=== PATIENT | male | born 1990 | race Caucasian/White ===

== ENCOUNTER 2019-09-11 18:38 | Emergency (ER) | payer SELFPAY ==
[~2019-09-11] VITALS: Ht 182.8 cm; Wt 104.3 kg
[~2019-09-11 18:38] MED LIST: AGM875T PO; ALEVE; AMOX-355 PO; AMOX500C2 PO; CEFP500T4 PO; DIPH50CA; DOXY100C2 PO; HYDR-34 PO; HYDR-757 PO; IBUPROFEN; METH4TAB PO; NAPR-243 PO; NAPR250T34 PO; ONDAN4ODT PO; PRD20T PO; PRD50T PO; PRX10T PO; TRIA16.5 NS; TRM50T PO
--- OUTSIDE RECORDS SUMMARY | 2019-09-11 18:49 | XMS REPORT | Referral Summary ---
Author Author [facility] Organization [facility] Address Unknown Phone Unavailable Care Team Providers Care Paleologist Name Role Phone No PCP, Pt States PCP Encounter [facility] [phone] Date(s): 03/31/17 - 03/31/17 [facility] [address] [place] [address] [facility] Discharge Diagnosis: Frontal sinusitis Discharge Disposition: 01-Home or Self Care Attending Physician: Provider, Immediate Care Attending Physician: Olegario Harrison APRN Admitting Physician: Provider, Immediate Care Vital Signs Most recent to 1 oldest [Reference Range]: Temperature Oral 36.4 degC [35.8-37.3 degC] (03/31/17 2:03 PM) Peripheral Pulse 81 bpm Rate [60-100 bpm] (03/31/17 2:03 PM) Blood Pressure 134/98 mmHg [90-140/60-90 mmHg] (03/31/17 2:03 PM) SpO2 98 % (03/31/17 2:03 PM) Problem List No Known Problems Allergies, Adverse Reactions, Alerts No Known Medication Allergies Medications Augmentin 500 mg-125 mg oral tablet 1 tabs, Oral, q8hr, X 7 days, # 21 tabs, 0 Refill(s), Pharmacy: [facility] [id number] Start Date: 03/31/17 Stop Date: 04/07/17 Status: Ordered Carafate 1 g oral tablet 1 g 1 tabs, Oral, BID, # 60 tabs, 0 Refill(s) Start Date: 06/20/16 Status: Ordered Zofran 4 mg oral tablet 4 mg 1 tabs, Oral, q4hr, Nausea or Vomiting | as needed for nausea/vomiting, # 1 0 tabs, 0 Refill(s) Start Date: 06/20/16 Status: Ordered Results No data available for this section Immunizations No data available for this section Procedures No data available for this section Social History Social History Type Response Smoking Status Never smoker entered on: 06/20/16 Assessment and Plan Extracted from: Title: Office Visit Note Author: Olegario Harrison APRN ate: 03/31/17 1.Frontal sinusitis Instructed patient on medication, use, common side effects, and administration. Discussed proper OTC medication, including [Tylenol, ibuprofen,antihistamine], for symptomatic relief. Discussed use of OTC saline nasal rinses, decongestants, salt water gargles,and cool mist humidifier for symptomatic relief. Encouraged patient to increase fluid intake to facilitate the thinningand drainingmucosal secretions. Instructed patient if symptoms worsen or new symptoms arise to seek medical attention here or at the ER. Instructed patient if symptoms do not improve follow up with PCP in 2-3 days. Patient voiced understanding and agreed with treatment plan. Patient dismissed in stable condition. Ordered: amoxicillin-clavulanate, 1 tabs, Oral, q8hr, X 7 days, # 21 tabs, 0 Refill(s), Pharmacy: [facility] [id number] Office Visit Level 3 Est [address]"
--- OUTSIDE RECORDS SUMMARY | 2019-09-11 18:49 | XMS REPORT ---
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 CrCl (CG) > 60 (no code) Arden Eolia (92702) IMMATURE 0.07 (N) Arden Eolia GRANULOCYTE # (08646) LIPASE 90 (N) Arden Eolia (17252) LYMPHOCYTE # 1.3 (N) Arden Eolia (05864) MONOCYTE # 0.7 (N) Arden Eolia (46292) NRBC % 0.0 (N) Arden Eolia (74657) RED BLOOD CELL 5.22 (N) Arden Eolia (17245) UA BILIRUBIN Negative (no code) Arden Eolia DIPSTICK (38622) UA BLOOD Negative (no code) Arden Eolia DIPSTICK (96350) UA GLUCOSE Negative (no code) Arden Eolia DIPSTICK (26166) UA KETONE Negative (no code) Arden Eolia DIPSTICK (49620) UA LEUKOCYTE Negative (no code) Arden Eolia ESTERASE (76192) DIPSTICK UA NITRITE Negative (no code) Arden Eolia DIPSTICK (84530) UA PROTEIN Negative (no code) Arden Eolia DIPSTICK (49534) UA SPECIFIC 1.010 (L) Arden Eolia GRAVITY (57482) UA UROBILINOGEN NORMAL (no code) Arden Woodlaw n DIPSTICK (75129) UR PH 6.0 (N) Arden Eolia (28305) WHITE BLOOD CELL 13.0 (H) Arden Florenciola wn (65845) laboratory on 2019-04-21 Albumin 4.4 g/dL (N) 3.4 - 5.4 g/dL Arden Levino dlawn [Mass/Vol] (57927) ALP [Catalytic 61 U/L (N) 44 - 147 U/L Arden Wo odlawn activity/Vol] (40968) Anion gap 12 mmol/L (N) 3 - 11 mmol/L Arden Wood lawn [Moles/Vol] (16590) Basophils/100 0.2 % (N) 0.5 - 1 % Arden Woodl awn WBC (Bld) (54966) Calcium 9.3 mg/dL (N) 8.5 - 10.2 mg/dL Arden W oodlawn [Mass/Vol] (66661) Chloride 101 mmol/L (N) 95 - 106 mmol/L Arden Wo odlawn [Moles/Vol] (78104) CO2 [Moles/Vol] 27 mmol/L (N) 23 - 29 mmol/L Arden Eolia (47707) Creatinine 1.23 mg/dL (N) Arden Eolia [Mass/Vol] (77523) Eosinophils/100 0.2 % (L) 1 - 4 % Arden Pritchard dlawn WBC (Bld) (47904) Erythrocyte 13.0 % (N) 11.6 - 14.6 % Arden Wood lawn distribution (34546) width (RBC) [Ratio] GFR/1.73 sq M mL/min/{1.73_m2} (no code) 90 - 120 Arden Eolia predicted among mL/min/{1.73_m2} (11067) non-blacks MDRD (S/P/Bld) [Vol rate/Area] Glucose 135 mg/dL (H) 60 - 125 mg/dL Arden Pritchard dlawn [Mass/Vol] (25515) Granulocytes 11.0 (H) Arden Eolia (Bld) [#/Vol] (18569) Granulocytes/100 84.3 % (H) Arden Woodla wn WBC (Bld) (16537) Hematocrit (Bld) 46.3 % (N) 36.1 - 50.3 % Arden Eolia [Volume (89944) fraction] Hemoglobin (Bld) 16.1 g/dL (N) 12.1 - 17.2 g/dL Jose raji Eolia [Mass/Vol] (82355) Immature 0.5 % (N) 0 - 0.5 % Arden Woodlaw n granulocytes/100 (36059) WBC (Bld) Lactate 1.7 mmol/L (N) 0.5 - 2.2 mmol/L Arden W oodlawn [Moles/Vol] (85017) Lymphocytes/100 9.7 % (L) 20 - 40 % Arden Pritchard dlawn WBC (Bld) (28767) MCH (RBC) 30.8 pg (N) 27 - 31 pg Arden Newton n [Entitic mass] (22150) MCHC (RBC) 34.8 g/dL (N) 32 - 36 g/dL Ardenraji Matiasl awn [Mass/Vol] (93288) MCV (RBC) 88.7 fL (N) 80 - 100 fL Ardenraji Matiasla wn [Entitic vol] (94095) Monocytes/100 5.1 % (N) 2 - 8 % Ardenraji Matiasl awn WBC (Bld) (30365) Platelet mean 9.1 fL (N) 7.2 - 11.7 fL Arden Levin odlawn volume (Bld) (15218) [Entitic vol] Platelets (Bld) 212 (N) Arden Newton n [#/Vol] (06664) Potassium 3.7 mmol/L (N) 3.7 - 5.2 mmol/L Arden W oodlawn [Moles/Vol] (72559) Protein 8.3 g/dL (H) 6.4 - 8.3 g/dL Arden Pritchard dlawn [Mass/Vol] (83494) Sodium 140 mmol/L (N) 135 - 145 mmol/L Arden W oodlawn [Moles/Vol] (31195) Urea nitrogen 21 mg/dL (H) 7 - 20 mg/dL Arden Pritchard dlawn [Mass/Vol] (25711) not yet categorized on 2019-03-08 - CT ABD/PELVIS ~ ~ PATIENT (no code) Arden mahoney WITH CONTRAST NAME: ([id number]) RAYNA NGUYEN Sanjay ~ UNIT NO: [id number] ~ ~ EXAMS: CPT CODE: ~ [id number] CT ABD/PELVIS WITH CONTRAST 29462 ~ ~ ~ REASON FOR EXAM: 28 years old Male right lower quadrant abdominal ~ pain ~ ~ TIME OF EXAM: 03/08/2019 3:31 PM ~ ~ COMPARISON: None ~ ~ TECHNIQUE: Routine helical contrast-enhance d CT images were obtained ~ through the abdomen and pelvis. Postprocessed coronal and sagittal ~ reformats were reviewed. ~ ~ FINDINGS: ~ Included Lung Bases: There is no consolidation or acute abnormality. ~ ~ CT Abdomen: The liver, spleen, adrenal glands, and pancreas all have a ~ normal appearance. Gallbladder phrygian cap is noted. ~ ~ Bilateral kidneys show multiple subcentimeter hypodense foci, too ~ small to characterize, likely represents simple cyst. ~ ~ There is no mesenteric or retroperitoneal adenopathy. The appendix has ~ a normal appearance (image 58 series 6). The bowel loops are ~ nondilated. Multiple fluid-filled small bowel and large bowel loops is ~ seen. ~ ~ There is no free fluid or free air. ~ ~ CT Pelvis: Ureters and bladder are within normal limits. ~ ~ There is no free air, free fluid, loculated collection, or adenopathy ~ in the pelvis. ~ ~ Linear sclerotic focus is seen in the proximal lateral right femur, ~ measuring approximately 2.3 cm in length (image 84 series 4), likely ~ benign in nature. Grade 1 retrolisthesis of L5 over S1. No aggressive ~ bone lesion is seen. ~ ~ The soft tissue structures are age appropriate. ~ ~ IMPRESSION: ~ 1. Multiple fluid-filled small and large bowel loops are seen. This is ~ ~ ~ [facility] ER NAME: RAYNA NGUYEN ~ [address] HP: [phone] AGE: 28 S:M~ [place] [address] : 1990 LOC: E.ED ~ PHYS: Aiden Miller MD ~ PHONE #: [phone] EXAM DATE: 03/08/2019 STATUS: REG ER~ FAX #: [phone] A#: [id number] U#: [id number]~ ~ PAGE 1 Signed Report (CONTINUED) ~ ~ ~ ~ ~ PATIENT NAME: RAYNA NGUYEN ~ UNIT NO: [id number] ~ ~ EXAMS: CPT CODE: ~ [id number] CT ABD/PELVIS WITH CONTRAST 01997 ~ <Continued>~ ~ ~ nonspecific in appearance, can be seen with enterocolitis. Recommend ~ clinical correlation. ~ ~ 2. Normal appendix. No bowel obstruction, free fluid, or free air. ~ ~ 3. Too small to characterize hypodense foci in bilateral kidneys, ~ likely represents simple cysts. ~ ~ ~ I have personally reviewed these images and corrected the resident ~ physician's interpretation if necessary. ~ ~ ~ at 1600 ~ RESIDENT: IMELDA KNOWLES MD ~ Reported and signed by: WILLAM SAMUEL MD ~ ~ ~ ~ ~ ~ ~ ~ ~ ~ ~ ~ ~ ~ ~ ~ ~ ~ ~ ~ CC: ~ ~ TECHNOLOGIST: LESTER CARRERO; ADRIANO RAMIREZ ~ TRANSCRIBED DATE/Time: 03/08/2019 1600 BY: [email or web address] ~ EXAM COMPLETE DATE/TIME: [id number] 1531 D/TM:03/08/2019 (1605)~ ~ ~ [facility] ER NAME: WENDYRAYNA P ~ [address] HP: [phone] AGE: 28 S:M~ [place] [address] : 1990 LOC: E.ED ~ PHYS: Aiden Miller MD ~ PHONE #: [phone] EXAM DATE: 03/08/2019 STATUS: REG ER~ FAX #: [phone] A#: [id number] U#: [id number]~ ~ PAGE 2 Signed Report *Final Page* BASOPHIL # 0.0 (N) [facility] ([id number]) DISCHARGE ~FAIRFAX (no code) 03-08-2019 [facility] INSTRUCTIONS HEALTHCARE 12:40-0500 (12024) (ED) (COCGHA )~DISCHARGE INSTRUCTIONS (ED) ~REPORT #: [id number] REPORT STATUS: Draft ~DATE: 03/08/19 TIME: 174~ ~PATIENT: RAYNA NGUYEN UNIT #: [id number]~ACCOU NT #: [id number] ROOM/BED: ~: 89 AGE: 28 SEX: M ATTEND: Aiden Sigala MD ~ADM DT: AUTHOR: Aiden Sigala MD ~ ~* ALL edits or amendments must be made on the electronic/compu ter document *~ ~Current patient of record information for this document is:~RAYNA NGUYEN~PatID: [id number] Age: 28~ : 1990~ ~Report including patient information as it appeared at the time this document ~was generated and provided to the patient is as follows below.~--------- ----~ ~RAYNA NGUYEN~PatID: [id number] Age: 28~ : 1990~Print ed: 03/08/2019 5:40 PM~By: Aiden Sigala~ ~General Emergency Department Discharge Instructions~ ~The exam and treatment you received in the Emergency Department were for an~urgent problem and are not intended as complete care. It is important that you~follow up with a doctor, nurse practitioner, or physician commissary assistant for ongoing~care. If your symptoms become worse or you do not improve as expected and you~are unable to reach your usual health care provider, you should return to the~Emergency Department. We are available 24 hours a day. ~ ~You were treated in the Emergency Department by: ~Primary Provider: Aiden Sigala MD~ ~Follow Up Information:~ ~Follow up with Your Physician as needed. ~ ~Prescriptions Written:~Hyoscya mine sulfate SL (Levsin SL) 0.125 mg Sublingual Tablet, Dissolve 1 tablet~under your tongue every four hours as needed for symptoms~Dispens e - (24).~Prescriber : Aiden Sigala~Paper Prescription given to patient~ ~The Following Instructions Were Selected for You Today: Vomiting / Diarrhea,~Viral~ ~ ~PATIENT'S NAME: RAYNA NGUYEN ACCOUNT NO: [id number]~ ~ ~ ~Vomiting / Diarrhea, Viral~ ~You were seen today for vomiting and diarrhea.~ ~In your case we believe your symptoms may have been caused by a virus.~ ~Many people call this gastroenteritis or the stomach flu but neither of these~terms are exact descriptions of what is happening in your gastrointestinal ~system. We will refer to your problem as vomiting and diarrhea.~ ~This infection often causes:~ * Nausea (feeling sick to your stomach).~ * Vomiting (throwing up)~ * Diarrhea which sometimes may be bloody. ~ * Abdominal (belly) pain and cramps.~ * Fever (temperature higher than 100.4 F / 38 C). ~ ~Your symptoms are treated with medicine to help the nausea and diarrhea. ~ ~Do the following at home:~ * Try not to eat anything for the next day.~ * Drink clear liquids, like water, broth, or juice that has been watered~ down. ~ * Try not to eat large heavy meals that may make you sick to your stomach. ~ When you start feeling better, you can eat more.~ * It is important to get enough fluids when you have a stomach virus.~ ~Follow up with your primary doctor if you do not improve or if you feel worse.~ ~Though we don't believe your condition is serious right now, it is important to~be careful. Sometimes a problem that seems mild can become serious later. This~is why it is very important that you return here or go to the nearest Emergency~Depart ment if you are not improving or your symptoms are getting worse.~ ~YOU SHOULD SEEK MEDICAL ATTENTION IMMEDIATELY, EITHER HERE OR AT THE NEAREST~EMERGENC Y DEPARTMENT, IF ANY OF THE FOLLOWING HAPPENS:~ * You do not urinate (pee) at least once every 8 hours.~ * Your throw up more often or you cannot keep fluids down.~ * Your vomit is bloody or dark green or your stool (poop) is bloody.~ * You do not improve over 2 to 3 days.~ * You have any new symptoms or concerns.~ ~If you can't follow up with your doctor, or if at any time you feel you need to~be rechecked or seen again, come back here or go to the nearest emergency~depart ment.~ ~Medication Instructions: Hyoscyamine sulfate SL (Levsin SL) 0.125 mg Sublingual~Table t~ ~Hyoscyamine sulfate SL (Levsin SL) 0.125 mg Sublingual Tablet~You have been given this medication to help with abdominal pain.~ * Take this medication as directed.~ ~PATIENT'S NAME: RAYNA NGUYEN ACCOUNT NO: [id number]~ ~ ~ ~ * DO NOT take this medication if you have ever been diagnosed with heart~ disease, glaucoma, prostate problems, myasthenia gravis, or colitis.~ * If you are on any of the following medications be sure that your doctor is~ aware, as they can interact with this medication: amantadine, benztropine,~ cisapride, digoxin, erythromycin, medicines for heart problems, medicines~ for hay fever or other allergies.~ * You may experience some side-effects from this medication. These usually~ do not require medical treatment. If they are bothersome stop taking the~ medication. If you feel that they are serious return to the Emergency~ Department for a recheck.~ * This medication may make you sensitive to the sun and heat. Be sure to~ wear sunglasses and sunscreen if you are outside. Try to stay in a cool~ environment as you could become overheated easily while taking this~ medication.~ * DO NOT drink alcoholic beverages while taking this medicine.~ * If you become dizzy, sit or lie down at the first signs. You should be~ careful going up and down stairs.~ * DO NOT take this medication if you are or are nursing.~ * Keep this medication out of the reach of children. Always keep this~ medication in child-proof containers. DO NOT give your medication to~ anyone else.~ ~You have been given a medication, or a prescription for a medication, that~causes drowsiness or dizziness. DO NOT drive a car, operate machinery, ride a~bike, or perform jobs that require you to be alert until you know how you are~going to react to this medication.~ ~THESE INSTRUCTIONS ARE NOT COMPREHENSIVE (complete): Ask your pharmacist for~additional information and precautions for this medication.~ ~What To Do:~ ~ * Take this sheet with you when you go to your follow-up visit.~ * If you have any problem arranging the follow-up visit, contact the~ Emergency Department immediately.~ * Take all medications as directed.~ ~You Were Given The Following Excuses and Limitations:~ADAMS NGUYEN was seen on 03/08/2019 and is excused from Work from 03/08/2019~elisa 03/10/2019~ ~Additional Information:~ ~ * There are occasions where additional lab tests return - such as a culture~ result or an X-ray or EKG - is further reviewed after you are discharged.~ If a change in your diagnosis or treatment is indicated, we will attempt to~ contact you. It is critical that we have a current phone number for you.~ ~ * If you had X-rays done, we can provide you a CD with those X-rays for your~ review and follow-up.~ ~ * Culture results may take 2-3 days. We review many culture results and will~ ~PATIENT'S NAME: RAYNA NGUYEN ACCOUNT NO: [id number]~ ~ ~ ~ attempt to contact you if the results are significant or may change your~ treatment. ~ ~If side effects develop, such as a rash, difficulty breathing, or a severe upset~stomach,~s top the medication and call your doctor or the Emergency Department.~ ~Preventative Health Instructions:~ ~The care you received in the emergency department has been done on an emergency~basis only and is not intended to be a substitute for regular medical care. If~your condition or symptoms persist or get worse at any time, you should return~to the emergency department if you're unable to contact your own physician. ~Please understand that although we may not have determined a specific cause of~your symptoms today, further evaluation may be necessary. It is important to~get a primary care provider (doctor, PA, or nurse practitioner) for follow up as~well as ongoing healthcare needs. ~ ~The following information is provided for you as education regarding~[facility] and follow up from your emergency department visit:~ ~Regular exercise, good diet and adequate fluid intake are very important for~general health maintenance. Please discuss these with your primary care doctor~to develop a plan specific to your needs. ~ ~Tobacco use is a risk factor for multiple serious illnesses. If you use~tobacco, please contact the [employer] at 5-367-EYFOLQC ( ) or~[employer] to assist in your efforts to stop using tobacco products.~ ~During your visit today your blood pressure may have been higher than normal. ~If it was high you should have this rechecked. Follow up with your physician or~the referral provider for a recheck within 4 weeks.~ ~Hypertension is a common but serious illness that should be monitored closely.~ ~During ER visits many patients receive sedation or medications which may impair~your judgment and or make driving, working or operating machinery or even~walking hazardous. Some of these medications include diphenhydramine (Benadryl)~and medications for anxiety, nausea and pain. Ask your nurse if you have~received any sedating medications. If you received any potentially sedating~medicat ions, please rest today and do not drive.~ ~IRAYNA, understand the instructions and will arrange for follow-up~care. ~ ~ 9~SHIRA ENT/REPRESENTATI VE SIGNATURE~ ~ _~ ~STAFF SIGNATURE~ ~ ~PATIENT'S NAME: RAYNA NGUYEN ACCOUNT NO: [id number] ED Provider Arden Cuenca (no code) 03-08-2019 Arden forde Report [facility] 09:42-0430 ([id number]) ([facility]) EDITH CUENCA~EMERGEN CY PROVIDER REPORT~REPORT#:[id number] REPORT STATUS: Draft~DATE:03/08 TIME: 1442~ ~PATIENT: RAYNA NGUYEN UNIT #: [id number]~ACCSHIELA NT#: [id number] ROOM/BED: [place] [address]~: [birth year] AGE: 28 SEX: PCP PHYS: No Primary or Family Physician~ADM DATE: 03/08/19 INI AUTH: Aiden Sigala MD~ED ADMIT LAST SIG: Aiden Sigala MD~REP SERV REP SERV TM: 1442~ * ALL edits or amendments must be made on the electronic/compu ter document *~ ~ ~ ~HPI-Abd Pain M Under 40~ ~General~Initial Greet Date/Time 03/08/19 142~ ~Review of Systems~ ~Focused Review of Systems~Constitu tional~Reports: Malaise. Denies: Chills, Fever. ~Respiratory~Den ies: Shortness of breath. ~Cardiovascular~ Denies: Chest pain. ~GI~Reports: Abdominal pain, Anorexia, Diarrhea, Nausea, Vomiting. ~ Male~Denies: Dysuria, Flank pain. ~Musculoskeletal ~Denies: Back pain. ~ ~Past Medical History - Adult~Stated Complaint ABD PAIN/VOMITING~Al carson~Coded Allergies:~No Known Allergies (05/20/18)~ ~Additional Medical History~Reports none~Additional Surgical History~Reports none~Smoking status for patients 13 years old or older: Never Smoker~Other Social History Good social support~ ~Physical Exam~ ~Vital Signs~Vital Signs~First Documented:~ Result Date Time~ Pulse Ox 98 03/08 1435~ B/P 142/82 03/08 1435~ B/P Mean 102 03/08 1435~ O2 Delivery Room air 03/08 1435~ Temp 97.5 03/08 1435~ Pulse 98 03/08 1435~ Resp 20 03/08 1435~ ~Last Documented:~ Result Date Time~ Pulse Ox 98 / 1435~ B/P 142/82 03/08 1435~ B/P Mean 102 03/08 1435~ O2 Delivery Room air 03/08 1435~ Temp 97.5 03/08 1435~ Pulse 98 / 1435~ Resp 20 03/08 1435~ ~ ~Review of Vital Signs Reviewed~ ~Free Text PE Notes~Free Text PE Notes~Exam: ~General: Uncomfortable due to pain, but no respiratory distress.~Head: Normocephalic, Atraumatic. ~Eyes: Pupils are equal and reactive to light~ENT: Shows dry mucous membranes~Neck is supple~Heart shows regular rhythm, that is tachycardic, no murmurs~Lungs are clear to auscultation bilaterally~Abdo men is soft, diffusely tender, worse in the right lower quadrant, mildly ~distended. No peritoneal signs noted on exam. No palpable masses.~Back: no midline tenderness, no step offs, no CVA TTP bilaterally~Lowe r extremity exam shows no edema. +2 peripheral pulses. No calf tenderness. ~No lower extremity asymmetry.~Neuro exam: Normal gait, normal speech, strength and sensation grossly intact.~ ~ ~Data Interpretation:~ Laboratory radiographic studies reviewed and considered in the medical ~decision-making .~ ~Reviewed prior records in [[facility]]~ ~I, Dr. Aiden Sigala, am the primary provider. ~ ~ED Course:~ ~Re-evaluation~T mio [] []~ ~Medical Decision Making/Different ial Diagnosis:~[]~ ~Discharge Note: ~The patient is stable for discharge. To the ability of this facility to ~determine with reasonable certainty, no acute life or limb threatening emergency~condit ion exists. The patient has been given an EMTALA compliant medical ~screening exam, and if there was an emergency condition present, it has been ~stabilized to the capability of this facility. All EMTALA requirements on this ~patient have been satisfied. This attending documentation supersedes all other ~documentation on this patient with regard to any conflicts or discrepancies.~ ~Based upon the current clinical scenario, including history, physical exam, and ~any applicable EKG, lab, or radiology results, there does not appear to be an ~acute life or limb threatening medical or surgical emergency. If an acute life ~or limb threatening medical or surgical emergency existed, it has been ~stabilized such that one no longer exists. The patient and any family members ~present were counseled on the fact that there currently does not seem to be an ~acute life or limb threatening medical or surgical emergency. Optional non ~emergent treatment, including optional pain treatment has been rendered as ~indicated at the discretion of the emergency physician. The patient and any ~present family members were educated on signs which could indicate that the ~current condition could be progressing into an acute life or limb threatening ~medical or surgical emergency, including but not limited to high fever or ~uncontrollable vomiting. The patient and any present family members were ~counseled to return to the ED for any of these signs, or any other symptoms they~believe may constitute an acute life or limb threatening medical or surgical ~emergency. They were further instructed to follow up with their primary care ~provider for both follow up of this condition, and any other non emergent issues~that they feel may need addressed. Appropriate PCP or specialty referrals were ~offered in the case that the patient does not have a PCP or appropriate ~specialist. The patient and any present family members indicated understanding ~of the above counseling.~ ~Dragon statement: ~Parts of this medical record were created with voice dictation software. Text ~was reviewed for grammar and syntax errors. All efforts were made to ensure ~accurate documentation to reflect my words and actions. ~ ~ ~Interpretation Diagnostics~ ~Lab Results Interpretation~R esults~Laborator y Tests~ ~ ~ ~03/08/19 1450:~[Embedded Image Not Available]~Labor atory Tests:~ 03/08~ 1450~ Hematology~ WBC (5.0 - 10.0 k/cumm) 12.1 H~ RBC (4.00 - 6.00 m/cumm) 5.70~ Hgb (14.0 - 18.0 gm/dL) 17.3~ Hct (40.0 - 54.0 %) 50.5~ MCV (80.0 - 100.0 fl) 88.6~ MCH (27.0 - 33.0 pg) 30.4~ MCHC (32.0 - 37.0 g/dL) 34.3~ RDW (11.0 - 15.6 %) 12.7~ Plt Count (150 - 400 k/cumm) 220~ MPV (8.5 - 10.9 fl) 9.0~ Immature Gran % (Auto) (0.0 - 0.6 %) 0.4~ Abs Immat Gran (auto) (0.00 - 0.09 k/cumm) 0.05~ Lymphocytes % (20 - 30 %) 4.7 L~ Monocytes % (4 - 6 %) 3.6 L~ Eosinophils % (2 - 4 %) 0.4 L~ Basophils % (0 - 1 %) 0.2~ Nucleated RBC % (0.0 - 0.0 /100 WBC) 0.0~ Absolute Granulocytes (2.0 - 9.0 k/cumm) 11.0 H~ Segmented Neutrophils (50 - 75 %) 90.7 H~ Absolute Lymphocytes (1.0 - 4.0 k/cumm) 0.6 L~ Absolute Monocytes (0.1 - 1.0 k/cumm) 0.4~ Absolute Eosinophils (0.1 - 0.5 k/cumm) 0.1~ Absolute Basophils (0.0 - 0.2 k/cumm) 0.0~ ~ ~ ~Re-Evaluation MDM~ ~ED Course~Medicatio n(s) Ordered~Medicati on(s) Ordered:~Central Nervous System Agents~ Sig/Cruz Start time Last~ Medication Dose Route Stop Time Status Admin~ Morphine Sulfate 6 MG X1ED STA 03/08 1441 DC 03/08~ IV 03/08 1442 1452~ ~Diagnostic Agents~ Sig/Cruz Start time Last~ Medication Dose Route Stop Time Status Admin~ Iopamidol See Dose ASDIR 03/08 1441 AC~ Insts (1) IV 03/09 1440~ Iopamidol See Dose ASDIR 03/08 1441 AC~ Insts (2) IV 03/09 1440~ ~Electrolytic, Caloric, And Damián~ Sig/Cruz Start time Last~ Medication Dose Route Stop Time Status Admin~ Sodium Chloride 1,000 ML BOLUS STA 03/08 1457 AC 12/~ IV 03/08 1556 1500~ Sodium Chloride 50 ML ASDIR 03/08 1441 AC~ IV 03/09 1440~ ~Gastrointestina l Drugs~ Sig/Cruz Start time Last~ Medication Dose Route Stop Time Status Admin~ Ondansetron HCl 4 MG X1ED STA 03/08 1441 DC 12/~ IV / 1442 1452~ ~Pharmaceutical Aids~ Sig/Cruz Start time Last~ Medication Dose Route Stop Time Status Admin~ Sodium Chloride See Dose ASDIR 03/08 1441 AC~ Insts (3) IV 03/09 1440~ ~Dose Instructions:~(1 )Iopamidol:~ PER RADIOLOGY POLICY~(2)Iopami dol:~ PER RADIOLOGY POLICY~(3)Sodium Chloride:~ FOR RAD PROVIDER USE~ ~ ~ ~Patient Discharge Departure~ ~Vital Signs/Condition~ Vital Signs~First Documented:~ Result Date Time~ Pulse Ox 98 03/08 1435~ B/P 142/82 03/08 1435~ B/P Mean 102 03/08 1435~ O2 Delivery Room air 03/08 1435~ Temp 97.5 03/08 1435~ Pulse 98 03/08 1435~ Resp 20 03/08 1435~ ~Last Documented:~ Result Date Time~ Pulse Ox 98 03/08 1435~ B/P 142/82 03/08 1435~ B/P Mean 102 03/08 1435~ O2 Delivery Room air 03/08 1435~ Temp 97.5 03/08 1435~ Pulse 98 03/08 1435~ Resp 20 03/08 1435~ ~All vital signs available at the time of this entry have been reviewed.~ ~RPT #: [id number]~END OF REPORT~ ED Provider Arden Cuenca (no code) 03-08-2019 Arden forde Report [facility] 09:42-0500 ([id number]) ([facility]) ED PERCYRyan~EMERGEN CY PROVIDER REPORT~REPORT#:[id number] REPORT STATUS: Draft~DATE:03/08 TIME: 144~ ~PATIENT: RAYNA NGUYEN UNIT #: [id number]~ACCOU NT#: [id number] ROOM/BED: E.ED~: 89 AGE: 28 SEX: PCP PHYS: No Primary or Family Physician~ADM DATE: 03/08/19 INI AUTH: Aiden Sigala MD~ED ADMIT LAST SIG: Aiden Sigala MD~REP SERV REP SERV TM: 1426~ * ALL edits or amendments must be made on the electronic/compu ter document *~ ~ ~ ~HPI-Abd Pain M Under 40~ ~General~Confirm ed Patient Yes~Patient Type New patient~Initial Greet Date/Time 03/08/191425~ ~Presentation~Ch ief Complaint Abdominal pain~Hx Obtained From Patient~ ~Free Text HPI Notes~Free Text HPI Notes~Patient presents emergency department because of diffuse abdominal pain, nausea ~vomiting and diarrhea. He was seen earlier today at our urgent care, prescribed~Zofra n, but states that it has not help with his nausea vomiting, and he still ~having 10 out of 10 abdominal pain that is cramping, without radiation or ~migration. Pain is made worse by palpation, and whenever he tried to eat ~something. He reports no sick contacts, he thinks he got food poisoning from ~something he ate yesterday. Denies any blood in stools. No chest pain or ~shortness of air, no fever or chills.~ ~ ~ ~Risk-Abd Pain M Under 40~)( Torsion Risk factors N/A~ ~Review of Systems~ ~ROS Statements~All systems rev neg except as marked.~ ~Focused Review of Systems~Constitu tional~Reports: Malaise. Denies: Chills, Fever. ~Respiratory~Den ies: Shortness of breath. ~Cardiovascular~ Denies: Chest pain. ~GI~Reports: Abdominal pain, Anorexia, Diarrhea, Nausea, Vomiting. ~ Male~Denies: Dysuria, Flank pain. ~Musculoskeletal ~Denies: Back pain. ~ ~Past Medical History - Adult~Stated Complaint ABD PAIN/VOMITING~Al lergies~Coded Allergies:~No Known Allergies (05/20/18)~ ~Additional Medical History~Reports none~Additional Surgical History~Reports none~Alcohol Use Denies EtOH use~Drug Use Denies recreational drugs~Smoking status for patients 13 years old or older: Never Smoker~Other Social History Good social support~ ~Physical Exam~ ~Vital Signs~Vital Signs~First Documented:~ Result Date Time~ Pulse Ox 98 / 1435~ B/P 142/82 03/08 1435~ B/P Mean 102 03/08 1435~ O2 Delivery Room air 03/08 1435~ Temp 97.5 03/08 1435~ Pulse 98 12/ 1435~ Resp 20 03/08 1435~ ~Last Documented:~ Result Date Time~ Pulse Ox 98 / 1800~ B/P 150/75 / 1800~ B/P Mean 100 12/ 1800~ O2 Delivery Room air 12/ 1800~ Pulse 82 12/ 1800~ Resp 16 12/ 1800~ Temp 97.5 03/08 1435~ ~ ~Review of Vital Signs Reviewed~ ~Free Text PE Notes~Free Text PE Notes~Exam: ~General: Uncomfortable due to pain, but no respiratory distress.~Head: Normocephalic, Atraumatic. ~Eyes: Pupils are equal and reactive to light~ENT: Shows dry mucous membranes~Neck is supple~Heart shows regular rhythm, that is tachycardic, no murmurs~Lungs are clear to auscultation bilaterally~Abdo men is soft, diffusely tender, worse in the right lower quadrant, mildly ~distended. No peritoneal signs noted on exam. No palpable masses.~Back: no midline tenderness, no step offs, no CVA TTP bilaterally~Lowe r extremity exam shows no edema. +2 peripheral pulses. No calf tenderness. ~No lower extremity asymmetry.~Neuro exam: Normal gait, normal speech, strength and sensation grossly intact.~ ~ ~Data Interpretation:~ Laboratory radiographic studies reviewed and considered in the medical ~decision-making .~ ~Reviewed prior records in [[facility]]~ ~I, Dr. Aiden Sigala, am the primary provider. ~ ~ED Course:~Medical Decision Making/Different ial Diagnosis:~The patient is resting comfortably and feels better, is alert and in no ~distress. The repeat examination is unremarkable and benign; in particular, ~there is no discomfort at McBurney's point. The history, exam, diagnostic ~testing, and current condition do not suggest acute appendicitis, bowel ~obstruction, incarcerated hernia, testicular torsion, acute cholecystitis, bowel~perforatio n, major gastrointestinal bleeding, severe diverticulitis, sepsis, or ~other significant pathology to warrant further testing, continued ED treatment, ~admission, or surgical evaluation at this point. The vital signs have been ~stable and are within normal limits at this time. The patient does not have ~uncontrollable pain, intractable vomiting, or other significant symptoms. The ~patient's condition is stable and appropriate for discharge. The patient will ~pursue further outpatient evaluation with the primary care physician or other ~designated or consulting physician as indicated in the discharge instructions.~ ~ ~Discharge Note: ~The patient is stable for discharge. To the ability of this facility to ~determine with reasonable certainty, no acute life or limb threatening emergency~condit ion exists. The patient has been given an EMTALA compliant medical ~screening exam, and if there was an emergency condition present, it has been ~stabilized to the capability of this facility. All EMTALA requirements on this ~patient have been satisfied. This attending documentation supersedes all other ~documentation on this patient with regard to any conflicts or discrepancies.~ ~Based upon the current clinical scenario, including history, physical exam, and ~any applicable EKG, lab, or radiology results, there does not appear to be an ~acute life or limb threatening medical or surgical emergency. If an acute life ~or limb threatening medical or surgical emergency existed, it has been ~stabilized such that one no longer exists. The patient and any family members ~present were counseled on the fact that there currently does not seem to be an ~acute life or limb threatening medical or surgical emergency. Optional non ~emergent treatment, including optional pain treatment has been rendered as ~indicated at the discretion of the emergency physician. The patient and any ~present family members were educated on signs which could indicate that the ~current condition could be progressing into an acute life or limb threatening ~medical or surgical emergency, including but not limited to high fever or ~uncontrollable vomiting. The patient and any present family members were ~counseled to return to the ED for any of these signs, or any other symptoms they~believe may constitute an acute life or limb threatening medical or surgical ~emergency. They were further instructed to follow up with their primary care ~provider for both follow up of this condition, and any other non emergent issues~that they feel may need addressed. Appropriate PCP or specialty referrals were ~offered in the case that the patient does not have a PCP or appropriate ~specialist. The patient and any present family members indicated understanding ~of the above counseling.~ ~Dragon statement: ~Parts of this medical record were created with voice dictation software. Text ~was reviewed for grammar and syntax errors. All efforts were made to ensure ~accurate documentation to reflect my words and actions. ~ ~ ~Interpretation Diagnostics~ ~Lab Results Interpretation~R esults~Laborator y Tests~ ~ ~ ~03/08/19 1450:~[Embedded Image Not Available]~Labor atory Tests:~ 03/08~ 1450~ Chemistry~ Sodium (135 - 148 mmol/L) 143~ Potassium (3.5 - 5.3 mmol/L) 4.1~ Chloride (98 - 110 mmol/L) 105~ Carbon Dioxide (21 - 32 mmol/L) 27~ Anion Gap (5 - 15 mmol/L) 11~ BUN (7 - 20 mg/dL) 22 H~ Creatinine (0.70 - 1.30 mg/dL) 1.21~ Estimated Creat Clear (> 59 mL/min) > 60~ Estimated GFR (MDRD) (> 59 mL/min) > 60~ Glucose (70 - 99 mg/dL) 116 H~ Calcium (8.5 - 10.1 mg/dL) 10.0~ Hematology~ WBC (5.0 - 10.0 k/cumm) 12.1 H~ RBC (4.00 - 6.00 m/cumm) 5.70~ Hgb (14.0 - 18.0 gm/dL) 17.3~ Hct (40.0 - 54.0 %) 50.5~ MCV (80.0 - 100.0 fl) 88.6~ MCH (27.0 - 33.0 pg) 30.4~ MCHC (32.0 - 37.0 g/dL) 34.3~ RDW (11.0 - 15.6 %) 12.7~ Plt Count (150 - 400 k/cumm) 220~ MPV (8.5 - 10.9 fl) 9.0~ Immature Gran % (Auto) (0.0 - 0.6 %) 0.4~ Abs Immat Gran (auto) (0.00 - 0.09 k/cumm) 0.05~ Lymphocytes % (20 - 30 %) 4.7 L~ Monocytes % (4 - 6 %) 3.6 L~ Eosinophils % (2 - 4 %) 0.4 L~ Basophils % (0 - 1 %) 0.2~ Nucleated RBC % (0.0 - 0.0 /100 WBC) 0.0~ Absolute Granulocytes (2.0 - 9.0 k/cumm) 11.0 H~ Segmented Neutrophils (50 - 75 %) 90.7 H~ Absolute Lymphocytes (1.0 - 4.0 k/cumm) 0.6 L~ Absolute Monocytes (0.1 - 1.0 k/cumm) 0.4~ Absolute Eosinophils (0.1 - 0.5 k/cumm) 0.1~ Absolute Basophils (0.0 - 0.2 k/cumm) 0.0~ ~Recent Impressions:~COM PUTERIZED TOMOGRAPHY - CT ABD/PELVIS WITH CONTRAST 03/08 1520~ Report Impression - Status: SIGNED Entered: 03/08/2019 1605~ ~IMPRESSION:~1. Multiple fluid-filled small and large bowel loops are seen. This is~nonspecific in appearance, can be seen with enterocolitis. Recommend~clinic al correlation.~ ~2. Normal appendix. No bowel obstruction, free fluid, or free air.~ ~3. Too small to characterize hypodense foci in bilateral kidneys,~likely represents simple cysts.~ ~ ~I have personally reviewed these images and corrected the resident~physici an's interpretation if necessary.~Impre ssion By: [email or web address] - WILLAM SAMUEL MD~ ~ ~ ~Re-Evaluation MDM~ ~ED Course~Medicatio n(s) Ordered~Medicati on(s) Ordered:~Central Nervous System Agents~ Sig/Cruz Start time Last~ Medication Dose Route Stop Time Status Admin~ Morphine Sulfate 6 MG X1ED STA 03/08 1441 DC 12/~ IV 03/08 1442 1452~ ~Diagnostic Agents~ Sig/Cruz Start time Last~ Medication Dose Route Stop Time Status Admin~ Iopamidol See Dose ASDIR 03/08 1441 AC~ Insts (1) IV 03/09 1440~ Iopamidol See Dose ASDIR 03/08 1441 AC~ Insts (2) IV / 1440~ ~Electrolytic, Caloric, And Damián~ Sig/Cruz Start time Last~ Medication Dose Route Stop Time Status Admin~ Sodium Chloride 1,000 ML BOLUS STA 03/08 1457 AC 12/~ IV 12/ 1556 1500~ Sodium Chloride 50 ML ASDIR 03/08 1441 AC~ IV / 1440~ ~Gastrointestina l Drugs~ Sig/Cruz Start time Last~ Medication Dose Route Stop Time Status Admin~ Ondansetron HCl 4 MG X1ED STA 03/08 1441 DC 12/03~ IV 12/ 1442 1452~ ~Pharmaceutical Aids~ Sig/Cruz Start time Last~ Medication Dose Route Stop Time Status Admin~ Sodium Chloride See Dose ASDIR 03/08 1441 AC~ Insts (3) IV / 1440~ ~Dose Instructions:~(1 )Iopamidol:~ PER RADIOLOGY POLICY~(2)Iopami dol:~ PER RADIOLOGY POLICY~(3)Sodium Chloride:~ FOR RAD PROVIDER USE~ ~ ~ ~Patient Discharge Departure~ ~Vital Signs/Condition~ Vital Signs~First Documented:~ Result Date Time~ Pulse Ox 98 03/08 1435~ B/P 142/82 03/08 1435~ B/P Mean 102 03/08 1435~ O2 Delivery Room air 03/08 1435~ Temp 97.5 03/08 1435~ Pulse 98 / 1435~ Resp 20 03/08 1435~ ~Last Documented:~ Result Date Time~ Pulse Ox 98 03/08 1800~ B/P 150/75 03/08 1800~ B/P Mean 100 03/08 1800~ O2 Delivery Room air 03/08 1800~ Pulse 82 03/08 1800~ Resp 16 03/08 1800~ Temp 97.5 03/08 1435~ ~All vital signs available at the time of this entry have been reviewed.~ ~Condition Stable~ ~Clinical Impression~Clini aimee Impression~Prima ry Impression: Nausea vomiting and diarrhea~Seconda ry Impressions: Dehydration~ ~Disposition Decision~Dischar ge~ )( Discharged to Home Yes~ )( Time 1740~ )( Date 03/08/19~RPT #: [id number]~END OF REPORT~ ED Provider Arden Cuenca (no code) 03-08-2019 Arden forde Report [facility] [id number]) ([facility]) [facility] CY PROVIDER REPORT~REPORT#:[id number] [id number] REPORT STATUS: Draft~DATE:03/08 TIME: 1442~ ~PATIENT: RAYNA NGUYEN UNIT #: [id number]~ACCOU NT#: [id number] ROOM/BED: [place] [address]~: [birth year] AGE: 28 SEX: PCP PHYS: No Primary or Family Physician~ADM DATE: INI AUTH: Aiden Sigala MD~ED ADMIT LAST SIG:~REP SERV REP SERV TM: 1442~ * ALL edits or amendments must be made on the electronic/compu ter document *~ ~ ~ ~HPI-Abd Pain M Under 40~ ~General~Initial Greet Date/Time 03/08/19 1426~ ~Past Medical History - Adult~Stated Complaint ABD PAIN/VOMITING~Al lergies~Coded Allergies:~No Known Allergies (05/20/18)~ ~Additional Medical History~Reports none~Additional Surgical History~Reports none~Smoking status for patients 13 years old or older: Never Smoker~Other Social History Good social support~ ~Physical Exam~ ~Vital Signs~Vital Signs~First Documented:~ Result Date Time~ Pulse Ox 98 / 1435~ B/P 142/82 03/08 1435~ B/P Mean 102 03/08 1435~ O2 Delivery Room air 03/08 1435~ Temp 97.5 03/08 1435~ Pulse 98 03/08 1435~ Resp 20 03/08 1435~ ~Last Documented:~ Result Date Time~ Pulse Ox 98 / 1435~ B/P 142/82 03/08 1435~ B/P Mean 102 03/08 1435~ O2 Delivery Room air 03/08 1435~ Temp 97.5 03/08 1435~ Pulse 98 03/08 1435~ Resp 20 03/08 1435~ ~ ~ ~Re-Evaluation MDM~ ~ED Course~Medicatio n(s) Ordered~Medicati on(s) Ordered:~Central Nervous System Agents~ Sig/Cruz Start time Last~ Medication Dose Route Stop Time Status Admin~ Morphine Sulfate 6 MG X1ED STA 03/08 1441 DC~ IV 03/08 1442~ ~Diagnostic Agents~ Sig/Cruz Start time Last~ Medication Dose Route Stop Time Status Admin~ Iopamidol See Dose ASDIR 03/08 1441 AC~ Insts (1) IV 03/09 1440~ Iopamidol See Dose ASDIR 03/08 1441 AC~ Insts (2) IV 03/09 1440~ ~Electrolytic, Caloric, And Damián~ Sig/Cruz Start time Last~ Medication Dose Route Stop Time Status Admin~ Sodium Chloride 50 ML ASDIR 03/08 1441 AC~ IV 03/09 1440~ ~Gastrointestina l Drugs~ Sig/Cruz Start time Last~ Medication Dose Route Stop Time Status Admin~ Ondansetron HCl 4 MG X1ED STA 03/08 1441 DC~ IV 03/08 1442~ ~Pharmaceutical Aids~ Sig/Cruz Start time Last~ Medication Dose Route Stop Time Status Admin~ Sodium Chloride See Dose ASDIR 03/08 1441 AC~ Insts (3) IV 03/09 1440~ ~Dose Instructions:~(1 )Iopamidol:~ PER RADIOLOGY POLICY~(2)Iopami dol:~ PER RADIOLOGY POLICY~(3)Sodium Chloride:~ FOR RAD PROVIDER USE~ ~ ~ ~Patient Discharge Departure~ ~Vital Signs/Condition~ Vital Signs~First Documented:~ Result Date Time~ Pulse Ox 98 03/08 1435~ B/P 142/82 / 1435~ B/P Mean 102 03/08 1435~ O2 Delivery Room air 03/08 1435~ Temp 97.5 03/08 1435~ Pulse 98 03/08 1435~ Resp 20 03/08 1435~ ~Last Documented:~ Result Date Time~ Pulse Ox 98 03/08 1435~ B/P 142/82 03/08 1435~ B/P Mean 102 03/08 1435~ O2 Delivery Room air 03/08 1435~ Temp 97.5 03/08 1435~ Pulse 98 03/08 1435~ Resp 20 03/08 1435~ ~All vital signs available at the time of this entry have been reviewed.~ ~RPT #: [id number]~END OF REPORT~ ED Provider Arden Cuenca (no code) 03-08-2019 Arden forde Report [facility] [phone] ([id number]) ([facility]) [facility]ER[facility] CY PROVIDER REPORT~REPORT#:[id number] [id number] REPORT STATUS: FSign~DATE:03/08 TIME: 1442~ ~PATIENT: RAYNA NGUYEN UNIT #: [id number]~ACCOU NT#: [id number] ROOM/BED: E.ED~: 88 AGE: 28 SEX: PCP PHYS: No Primary or Family Physician~ADM DATE: 03/08/19 INI AUTH: Aiden Sigala MD~ED ADMIT LAST SIG: Aiden Sigala MD~REP SERV REP SERV TM: 1426~ * ALL edits or amendments must be made on the electronic/compu ter document *~ ~ ~ ~HPI-Abd Pain M Under 40~ ~General~Confirm ed Patient Yes~Patient Type New patient~Initial Greet Date/Time 03/08/191425~ ~Presentation~Ch ief Complaint Abdominal pain~Hx Obtained From Patient~ ~Free Text HPI Notes~Free Text HPI Notes~Patient presents emergency department because of diffuse abdominal pain, nausea ~vomiting and diarrhea. He was seen earlier today at our urgent care, prescribed~Zofra n, but states that it has not help with his nausea vomiting, and he still ~having 10 out of 10 abdominal pain that is cramping, without radiation or ~migration. Pain is made worse by palpation, and whenever he tried to eat ~something. He reports no sick contacts, he thinks he got food poisoning from ~something he ate yesterday. Denies any blood in stools. No chest pain or ~shortness of air, no fever or chills.~ ~ ~ ~Risk-Abd Pain M Under 40~)( Torsion Risk factors N/A~ ~Review of Systems~ ~ROS Statements~All systems rev neg except as marked.~ ~Focused Review of Systems~Constitu tional~Reports: Malaise. Denies: Chills, Fever. ~Respiratory~Den ies: Shortness of breath. ~Cardiovascular~ Denies: Chest pain. ~GI~Reports: Abdominal pain, Anorexia, Diarrhea, Nausea, Vomiting. ~ Male~Denies: Dysuria, Flank pain. ~Musculoskeletal ~Denies: Back pain. ~ ~Past Medical History - Adult~Stated Complaint ABD PAIN/VOMITING~Al carson~Coded Allergies:~No Known Allergies (05/20/18)~ ~Additional Medical History~Reports none~Additional Surgical History~Reports none~Alcohol Use Denies EtOH use~Drug Use Denies recreational drugs~Smoking status for patients 13 years old or older: Never Smoker~Other Social History Good social support~ ~Physical Exam~ ~Vital Signs~Vital Signs~First Documented:~ Result Date Time~ Pulse Ox 98 03/08 1435~ B/P 142/82 / 1435~ B/P Mean 102 03/08 1435~ O2 Delivery Room air 03/08 1435~ Temp 97.5 / 1435~ Pulse 98 / 1435~ Resp 20 03/08 1435~ ~Last Documented:~ Result Date Time~ Pulse Ox 98 / 1800~ B/P 150/75 03/08 1800~ B/P Mean 100 03/08 1800~ O2 Delivery Room air 03/08 1800~ Pulse 82 12/ 1800~ Resp 16 03/08 1800~ Temp 97.5 03/08 1435~ ~ ~Review of Vital Signs Reviewed~ ~Free Text PE Notes~Free Text PE Notes~Exam: ~General: Uncomfortable due to pain, but no respiratory distress.~Head: Normocephalic, Atraumatic. ~Eyes: Pupils are equal and reactive to light~ENT: Shows dry mucous membranes~Neck is supple~Heart shows regular rhythm, that is tachycardic, no murmurs~Lungs are clear to auscultation bilaterally~Abdo men is soft, diffusely tender, worse in the right lower quadrant, mildly ~distended. No peritoneal signs noted on exam. No palpable masses.~Back: no midline tenderness, no step offs, no CVA TTP bilaterally~Lowe r extremity exam shows no edema. +2 peripheral pulses. No calf tenderness. ~No lower extremity asymmetry.~Neuro exam: Normal gait, normal speech, strength and sensation grossly intact.~ ~ ~Data Interpretation:~ Laboratory radiographic studies reviewed and considered in the medical ~decision-making .~ ~Reviewed prior records in [[facility]]~ ~I, Dr. Aiden Sigala, am the primary provider. ~ ~ED Course:~Medical Decision Making/Different ial Diagnosis:~The patient is resting comfortably and feels better, is alert and in no ~distress. The repeat examination is unremarkable and benign; in particular, ~there is no discomfort at McBurney's point. The history, exam, diagnostic ~testing, and current condition do not suggest acute appendicitis, bowel ~obstruction, incarcerated hernia, testicular torsion, acute cholecystitis, bowel~perforatio n, major gastrointestinal bleeding, severe diverticulitis, sepsis, or ~other significant pathology to warrant further testing, continued ED treatment, ~admission, or surgical evaluation at this point. The vital signs have been ~stable and are within normal limits at this time. The patient does not have ~uncontrollable pain, intractable vomiting, or other significant symptoms. The ~patient's condition is stable and appropriate for discharge. The patient will ~pursue further outpatient evaluation with the primary care physician or other ~designated or consulting physician as indicated in the discharge instructions.~ ~ ~Discharge Note: ~The patient is stable for discharge. To the ability of this facility to ~determine with reasonable certainty, no acute life or limb threatening emergency~condit ion exists. The patient has been given an EMTALA compliant medical ~screening exam, and if there was an emergency condition present, it has been ~stabilized to the capability of this facility. All EMTALA requirements on this ~patient have been satisfied. This attending documentation supersedes all other ~documentation on this patient with regard to any conflicts or discrepancies.~ ~Based upon the current clinical scenario, including history, physical exam, and ~any applicable EKG, lab, or radiology results, there does not appear to be an ~acute life or limb threatening medical or surgical emergency. If an acute life ~or limb threatening medical or surgical emergency existed, it has been ~stabilized such that one no longer exists. The patient and any family members ~present were counseled on the fact that there currently does not seem to be an ~acute life or limb threatening medical or surgical emergency. Optional non ~emergent treatment, including optional pain treatment has been rendered as ~indicated at the discretion of the emergency physician. The patient and any ~present family members were educated on signs which could indicate that the ~current condition could be progressing into an acute life or limb threatening ~medical or surgical emergency, including but not limited to high fever or ~uncontrollable vomiting. The patient and any present family members were ~counseled to return to the ED for any of these signs, or any other symptoms they~believe may constitute an acute life or limb threatening medical or surgical ~emergency. They were further instructed to follow up with their primary care ~provider for both follow up of this condition, and any other non emergent issues~that they feel may need addressed. Appropriate PCP or specialty referrals were ~offered in the case that the patient does not have a PCP or appropriate ~specialist. The patient and any present family members indicated understanding ~of the above counseling.~ ~Dragon statement: ~Parts of this medical record were created with voice dictation software. Text ~was reviewed for grammar and syntax errors. All efforts were made to ensure ~accurate documentation to reflect my words and actions. ~ ~ ~Interpretation Diagnostics~ ~Lab Results Interpretation~R esults~Laborator y Tests~ ~ ~ ~03/08/19 1450:~[Embedded Image Not Available]~Labor atory Tests:~ 03/08~ 1450~ Chemistry~ Sodium (135 - 148 mmol/L) 143~ Potassium (3.5 - 5.3 mmol/L) 4.1~ Chloride (98 - 110 mmol/L) 105~ Carbon Dioxide (21 - 32 mmol/L) 27~ Anion Gap (5 - 15 mmol/L) 11~ BUN (7 - 20 mg/dL) 22 H~ Creatinine (0.70 - 1.30 mg/dL) 1.21~ Estimated Creat Clear (> 59 mL/min) > 60~ Estimated GFR (MDRD) (> 59 mL/min) > 60~ Glucose (70 - 99 mg/dL) 116 H~ Calcium (8.5 - 10.1 mg/dL) 10.0~ Hematology~ WBC (5.0 - 10.0 k/cumm) 12.1 H~ RBC (4.00 - 6.00 m/cumm) 5.70~ Hgb (14.0 - 18.0 gm/dL) 17.3~ Hct (40.0 - 54.0 %) 50.5~ MCV (80.0 - 100.0 fl) 88.6~ MCH (27.0 - 33.0 pg) 30.4~ MCHC (32.0 - 37.0 g/dL) 34.3~ RDW (11.0 - 15.6 %) 12.7~ Plt Count (150 - 400 k/cumm) 220~ MPV (8.5 - 10.9 fl) 9.0~ Immature Gran % (Auto) (0.0 - 0.6 %) 0.4~ Abs Immat Gran (auto) (0.00 - 0.09 k/cumm) 0.05~ Lymphocytes % (20 - 30 %) 4.7 L~ Monocytes % (4 - 6 %) 3.6 L~ Eosinophils % (2 - 4 %) 0.4 L~ Basophils % (0 - 1 %) 0.2~ Nucleated RBC % (0.0 - 0.0 /100 WBC) 0.0~ Absolute Granulocytes (2.0 - 9.0 k/cumm) 11.0 H~ Segmented Neutrophils (50 - 75 %) 90.7 H~ Absolute Lymphocytes (1.0 - 4.0 k/cumm) 0.6 L~ Absolute Monocytes (0.1 - 1.0 k/cumm) 0.4~ Absolute Eosinophils (0.1 - 0.5 k/cumm) 0.1~ Absolute Basophils (0.0 - 0.2 k/cumm) 0.0~ ~Recent Impressions:~COM PUTERIZED TOMOGRAPHY - CT ABD/PELVIS WITH CONTRAST 03/08 1520~ Report Impression - Status: SIGNED Entered: 03/08/2019 1605~ ~IMPRESSION:~1. Multiple fluid-filled small and large bowel loops are seen. This is~nonspecific in appearance, can be seen with enterocolitis. Recommend~clinic al correlation.~ ~2. Normal appendix. No bowel obstruction, free fluid, or free air.~ ~3. Too small to characterize hypodense foci in bilateral kidneys,~likely represents simple cysts.~ ~ ~I have personally reviewed these images and corrected the resident~physici an's interpretation if necessary.~Impre ssion By: ANGELIKA - WILLAM SAMUEL MD~ ~ ~ ~Re-Evaluation MDM~ ~ED Course~Medicatio n(s) Ordered~Medicati on(s) Ordered:~Central Nervous System Agents~ Sig/Cruz Start time Last~ Medication Dose Route Stop Time Status Admin~ Morphine Sulfate 6 MG X1ED STA 03/08 1441 DC 03/08~ IV 03/08 1442 1452~ ~Diagnostic Agents~ Sig/Cruz Start time Last~ Medication Dose Route Stop Time Status Admin~ Iopamidol See Dose ASDIR 03/08 1441 AC~ Insts (1) IV 03/09 1440~ Iopamidol See Dose ASDIR 03/08 1441 AC~ Insts (2) IV 03/09 1440~ ~Electrolytic, Caloric, And Damián~ Sig/Cruz Start time Last~ Medication Dose Route Stop Time Status Admin~ Sodium Chloride 1,000 ML BOLUS STA 03/08 1457 AC 03/08~ IV 03/08 1556 1500~ Sodium Chloride 50 ML ASDIR 03/08 1441 AC~ IV 03/09 1440~ ~Gastrointestina l Drugs~ Sig/Cruz Start time Last~ Medication Dose Route Stop Time Status Admin~ Ondansetron HCl 4 MG X1ED STA 03/08 1441 DC 12~ IV / 1442 1452~ ~Pharmaceutical Aids~ Sig/Cruz Start time Last~ Medication Dose Route Stop Time Status Admin~ Sodium Chloride See Dose ASDIR 03/08 1441 AC~ Insts (3) IV 03/09 1440~ ~Dose Instructions:~(1 )Iopamidol:~ PER RADIOLOGY POLICY~(2)Iopami dol:~ PER RADIOLOGY POLICY~(3)Sodium Chloride:~ FOR RAD PROVIDER USE~ ~ ~ ~Patient Discharge Departure~ ~Vital Signs/Condition~ Vital Signs~First Documented:~ Result Date Time~ Pulse Ox 98 03/08 1435~ B/P 142/82 / 1435~ B/P Mean 102 / 1435~ O2 Delivery Room air 03/08 1435~ Temp 97.5 03/08 1435~ Pulse 98 03/08 1435~ Resp 20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 ~Free Text HPI Notes~Free Text HPI Notes~HPI:~28 y/o M presents to the ED c/o burn that occured just [employer]. Pain is rated 9/10 ~in severity. States that he was working with a hose full of hot water and the ~valve broke which lead to him being sprayed on the face, scalp, bilateral ~shoulders and right wrist. He is mainly concerned with the burn on his face. ~Denies trouble breathing or difficulty swallowing. Denies any vision changes or ~eye pain. ~ ~Review of Systems~Constitu tional: DENIES: fever, chills, generalized weakness.~Skin: Reports burn to face, scalp, bilateral shoulders, and right wrist. ~Respiratory: DENIES: SOB, cough~Cardiovasc ular: DENIES: chest pain, edema, palpitations.~Ga strointestinal: DENIES: constipation, diarrhea. ABD pain~Genitourina ry: DENIES: dysuria.~Neuro: DENIES: headache, numbness, focal weakness.~All 10 systems reviewed negative except as marked.~ ~Physical Exam~General: Alert, oriented, well-developed, nourished~HE: PERRL, EOMI~ENT: Oropharynx wnl, moist mucous membranes, TMs Normal~CV: RRR, no murmurs rubs or gallops, 2+ radial pulses bilaterally, no pedal ~edema~Pulm: Clear to auscultation bilaterally, no wheezes rales or rhonchi, no ~accessory muscle use and no prolonged expiratory phase~Abdomen: Soft, nontender, no guarding, no rebound~Skin: First-degree lawrence to entire face, scalp, neck, posterior neck, bilateral ~upper shoulders, and right wrist. No blistering noted at this point. ~Neuro: Alert and oriented, normal gait~ ~ ~General~Confirm ed Patient Yes (Room 41)~Initial Greet Date/Time 05/20/182135~ ~Presentation~ ief Complaint Burn~Hx Obtained From Patient~ ~Portions of this section were scribed by OWEN KARIMI on 05/20/18 at 2313~ ~Past Medical History - Adult~Stated Complaint BURN~Allergies~C elysia Allergies:~No Known Allergies (05/20/18)~ ~Additional Medical History~Reports none~Additional Surgical History~Reports none~Smoking status for patients 13 years old or older: Never Smoker~Other Social History Good social support~ ~Portions of this section were scribed by OWEN KARIMI on 05/20/18 at 2203~ ~Physical Exam~ ~Vital Signs~Vital Signs~First Documented:~ Result Date Time~ Pulse Ox 98 02/14 2140~ B/P 139/95 05/20 2140~ B/P Mean 109 05/20 2140~ Temp 36.7 05/20 2140~ Pulse 83 05/20 2140~ Resp 18 05/20 2139~ ~Last Documented:~ Result Date Time~ Pulse Ox 98 05/20 2140~ B/P 139/95 05/20 2140~ B/P Mean 109 05/20 2140~ Temp 36.7 05/20 2140~ Pulse 83 05/20 2140~ Resp 18 05/20 2139~ ~ ~Review of Vital Signs Reviewed~ ~Portions of this section were scribed by OWEN KARIMI on 05/20/18 at 2150~ ~Re-Evaluation MDM~ ~Free Text MDM Notes~Free Text MDM Notes~No airway compromise. Will give pain medication and call for burn evaluation.~ ~2199: Page sent to Dr. Rajendra Ny ~2204: Page returned by Dr. Ny. Patient is to follow up in burn clinic. If he ~is unable to get a clinic appointment and the wounds worsen he can go to [facility] ED for evaluation.~2250 : Pain is improved after IM fentanyl. Lawrence to the forehead are starting to ~blister. No other blisters noted.~2305: On reevaluation, pt reports pain has improved. He is comfortable going ~home. He will follow up with burn center tomorrow. ~Additional Text~Discussed with Dr. Avalos and he is in agreement with plan of care and dispo.~ ~Shortly after patient left realized that patient did not receive Tdap vaccine. ~Called patient and asked him to return to ED for vaccine. He states he will just~FU with PCP or [facility] to get vaccine tomorrow.~ ~ED Course~Medicatio n(s) Ordered~Medicati on(s) Ordered:~Central Nervous System Agents~ Sig/Cruz Start time Last~ Medication Dose Route Stop Time Status Admin~ Fentanyl 100 MCG X1ED STA 05/20 2222 DC 05/20~ IM 05/20~ Hydrocodone Bitart/ 1 TABLET X1ED STA 05/20 2215 DC 05/20~ Acetaminophen PO 05/20~ ~ ~ ~Portions of this section were scribed by OWEN KARIMI on 02/14/19 at 2313~ ~Patient Discharge Departure~ ~Vital Signs/Condition~ Vital Signs~First Documented:~ Result Date Time~ Pulse Ox 98 05/200~ B/P 139/95 05/20 2140~ B/P Mean 109 05/20 2140~ Temp 36.7 05/20 2140~ Pulse 83 05/20 2140~ Resp 18 05/20 2139~ ~Last Documented:~ Result Date Time~ Pulse Ox 98 05/20 2140~ B/P 139/95 05/20 2140~ B/P Mean 109 05/20 2140~ Temp 36.7 05/200~ Pulse 83 05/200~ Resp 18 05/20 2139~ ~All vital signs available at the time of this entry have been reviewed.~ ~Condition Stable~ ~Clinical Impression~Clini aimee Impression~Prima ry Impression: First degree lawrence~ ~Disposition Decision~Dischar ge~ )( Discharged to Home Yes~ )( Time 2306~ )( Date 05/20/18~ ~Discharge/Care Plan~Counseled Regarding Diagnosis, Prescriptions, Need for follow-up, When to return~to ED~Prescriptions ~[place] 10mg 20 count~Prescripti ons Reviewed Risks, Benefits, Alternative treatment~ Discharge Note~I have spoken with the patient and/or caregivers. I have explained the patient's~condit ion, diagnoses and treatment plan based on the information available to me~at this time. I have answered the patient's and/or caregiver's questions and ~addressed any concerns. The patient and/or caregivers have as good an ~understanding of the patient's diagnosis, condition and treatment plan as can be~expected at this point. The vital signs have been stable. The patient's ~condition is stable and appropriate for discharge from the emergency department.~ ~ ~The patient will pursue further outpatient evaluation with the primary care ~physician or other designated or consulting physician as outlined in the ~discharge instructions. The patient and/or caregivers are agreeable to this plan~of care and follow-up instructions have been explained in detail. The patient ~and/or caregivers have received these instructions in written format and have ~expressed an understanding of the discharge instructions. The patient and/or ~caregivers are aware that any significant change in condition or worsening of ~symptoms should prompt an immediate return to this or the closest emergency ~department or a call to 911.~ ~ ~Supervising Physician Note~ Scribe Statement~Owen Park, scribing for and in the presence of Belem Haney APRN.~ ~ ~ Provider Scribed Statement~I personally performed the services described in this documentation and reviewed~the documentation that was dictated to the scribe(s) in my presence, and it ~accurately records my words and actions. , ~ ~ ~Portions of this section were scribed by OWEN KARIMI on 05/20/18 at 2307~ ~ATTESTATION~ATT ESTATION~Midleve l Attestation:~I have seen and treated this patient independently consistent with my level of ~credentialing and licensure.~ ~Portions of this note were transcribed by Owen Karimi. I, Belem Haney APRN,~personally performed the history, physical exam and medical decision making; and~confirmed the accuracy of the information in the transcribed note.~ ~ ~Portions of this section were scribed by OWEN KARIMI on 05/20/18 at 2138~ ~ at 0200~RPT #: [id number]~END OF REPORT~ [facility] (no code) 05-20-2018 [facility] [Mass/Vol] Center ([facility]) 22:38-0500 Center ([id number] ) ED READY CARE~EMERGENCY PROVIDER REPORT~REPORT#:[id number] REPORT STATUS: FSign~DATE:05/20 TIME: 2137~ ~PATIENT: RAYNA NGUYEN UNIT #: [id number]~ACCOU NT#: [id number] ROOM/BED: [facility]~: [birth year] AGE: 28 SEX: PCP PHYS: No Primary or Family Physician~ADM DATE: 05/20/18 INI AUTH: Belem Haney APRN~ED ADMIT LAST SIG: Johnson Avalos MD~REP SERV REP SERV TM: 2135~ * ALL edits or amendments must be made on the electronic/compu ter document *~ ~ ~ ~BELEM HANEY 05/20/182137:~HPI-Genera l Illness~ ~Free Text HPI Notes~Free Text HPI Notes~HPI:~28 y/o M presents to the ED c/o burn that occured just [employer]. Pain is rated 9/10 ~in severity. States that he was working with a hose full of hot water and the ~valve broke which lead to him being sprayed on the face, scalp, bilateral ~shoulders and right wrist. He is mainly concerned with the burn on his face. ~Denies trouble breathing or difficulty swallowing. Denies any vision changes or ~eye pain. ~ ~Review of Systems~Constitu tional: DENIES: fever, chills, generalized weakness.~Skin: Reports burn to face, scalp, bilateral shoulders, and right wrist. ~Respiratory: DENIES: SOB, cough~Cardiovasc ular: DENIES: chest pain, edema, palpitations.~Ga strointestinal: DENIES: constipation, diarrhea. ABD pain~Genitourina ry: DENIES: dysuria.~Neuro: DENIES: headache, numbness, focal weakness.~All 10 systems reviewed negative except as marked.~ ~Physical Exam~General: Alert, oriented, well-developed, nourished~HE: PERRL, EOMI~ENT: Oropharynx wnl, moist mucous membranes, TMs Normal~CV: RRR, no murmurs rubs or gallops, 2+ radial pulses bilaterally, no pedal ~edema~Pulm: Clear to auscultation bilaterally, no wheezes rales or rhonchi, no ~accessory muscle use and no prolonged expiratory phase~Abdomen: Soft, nontender, no guarding, no rebound~Skin: First-degree lawrence to entire face, scalp, neck, posterior neck, bilateral ~upper shoulders, and right wrist. No blistering noted at this point. ~Neuro: Alert and oriented, normal gait~ ~ ~General~Confirm ed Patient Yes (Room 41)~ ~Presentation~ ief Complaint Burn~Hx Obtained From Patient~ ~Portions of this section were scribed by OWEN KARIMI on 05/20/18 at 2313~ ~Past Medical History - Adult~Stated Complaint BURN~Allergies~C elysia Allergies:~No Known Allergies (05/20/18)~ ~Additional Medical History~Reports none~Additional Surgical History~Reports none~Smoking status for patients 13 years old or older: Never Smoker~Other Social History Good social support~ ~Portions of this section were scribed by OWEN KARIMI on 05/20/18 at 2203~ ~Physical Exam~ ~Vital Signs~Vital Signs~First Documented:~ Result Date Time~ Pulse Ox 98 05/200~ B/P 139/95 05/20 2140~ B/P Mean 109 05/20 2140~ Temp 36.7 05/20 2140~ Pulse 83 05/20 2140~ Resp 18 05/20 2139~ ~Last Documented:~ Result Date Time~ Pulse Ox 98 05/20 2140~ B/P 139/95 05/20 2140~ B/P Mean 109 05/20 2140~ Temp 36.7 05/200~ Pulse 83 05/200~ Resp 18 05/20 2139~ ~ ~Review of Vital Signs Reviewed~ ~Portions of this section were scribed by OWEN KARIMI on 05/20/18 at 2150~ ~Re-Evaluation MDM~ ~Free Text MDM Notes~Free Text MDM Notes~No airway compromise. Will give pain medication and call for burn evaluation.~ ~2200: Page sent to Dr. Rajendra Ny ~220: Page returned by Dr. Ny. Patient is to follow up in burn clinic. If he ~is unable to get a clinic appointment and the wounds worsen he can go to [facility] ED for evaluation.~2250 : Pain is improved after IM fentanyl. Lawrence to the forehead are starting to ~blister. No other blisters noted.~2305: On reevaluation, pt reports pain has improved. He is comfortable going ~home. He will follow up with burn center tomorrow. ~Additional Text~Discussed with Dr. Avalos and he is in agreement with plan of care and dispo.~ ~Shortly after patient left realized that patient did not receive Tdap vaccine. ~Called patient and asked him to return to ED for vaccine. He states he will just~FU with PCP or [facility] to get vaccine tomorrow.~ ~ED Course~Medicatio n(s) Ordered~Medicati on(s) Ordered:~Central Nervous System Agents~ Sig/Cruz Start time Last~ Medication Dose Route Stop Time Status Admin~ Fentanyl 100 MCG X1ED STA 05/20 2222 DC 05/20~ IM 05/20~ Hydrocodone Bitart/ 1 TABLET X1ED STA 05/20 2215 DC 05/20~ Acetaminophen PO 05/20~ ~ ~ ~Portions of this section were scribed by OWEN KARIMI on 05/20/18 at 2313~ ~Patient Discharge Departure~ ~Vital Signs/Condition~ Vital Signs~First Documented:~ Result Date Time~ Pulse Ox 98 05/20 2140~ B/P 139/95 05/20 2140~ B/P Mean 109 05/20 2140~ Temp 36.7 05/20 2140~ Pulse 83 05/20 2140~ Resp 18 05/20 2139~ ~Last Documented:~ Result Date Time~ Pulse Ox 98 05/20 2140~ B/P 139/95 05/20 2140~ B/P Mean 109 05/20 2140~ Temp 36.7 05/20 2140~ Pulse 83 05/200~ Resp 18 05/20 2139~ ~All vital signs available at the time of this entry have been reviewed.~ ~Condition Stable~ ~Clinical Impression~Clini aimee Impression~Prima ry Impression: First degree lawrence~ ~Disposition Decision~Dischar ge~ )( Discharged to Home Yes~ )( Time 2306~ )( Date 05/20/18~ ~Discharge/Care Plan~Counseled Regarding Diagnosis, Prescriptions, Need for follow-up, When to return~to ED~Prescriptions ~[place] 10mg 20 count~Prescripti ons Reviewed Risks, Benefits, Alternative treatment~ Discharge Note~I have spoken with the patient and/or caregivers. I have explained the patient's~condit ion, diagnoses and treatment plan based on the information available to me~at this time. I have answered the patient's and/or caregiver's questions and ~addressed any concerns. The patient and/or caregivers have as good an ~understanding of the patient's diagnosis, condition and treatment plan as can be~expected at this point. The vital signs have been stable. The patient's ~condition is stable and appropriate for discharge from the emergency department.~ ~ ~The patient will pursue further outpatient evaluation with the primary care ~physician or other designated or consulting physician as outlined in the ~discharge instructions. The patient and/or caregivers are agreeable to this plan~of care and follow-up instructions have been explained in detail. The patient ~and/or caregivers have received these instructions in written format and have ~expressed an understanding of the discharge instructions. The patient and/or ~caregivers are aware that any significant change in condition or worsening of ~symptoms should prompt an immediate return to this or the closest emergency ~department or a call to 911.~ ~ ~Supervising Physician Note~ Scribe Statement~Owen Park, scribing for and in the presence of Belem Haney APRN.~ ~ ~ Provider Scribed Statement~I personally performed the services described in this documentation and reviewed~the documentation that was dictated to the scribe(s) in my presence, and it ~accurately records my words and actions. , ~ ~ ~Portions of this section were scribed by OWEN KARIMI on 05/20/18 at 2307~ ~ATTESTATION~ATT ESTATION~Midleve l Attestation:~I have seen and treated this patient independently consistent with my level of ~credentialing and licensure.~ ~Portions of this note were transcribed by Owen Karimi. I, Belem Haney APRN,~personally performed the history, physical exam and medical decision making; and~confirmed the accuracy of the information in the transcribed note.~ ~ ~Portions of this section were scribed by OWEN KARIMI on 05/20/18 at 2138~ ~JOHNSON AVALOS MD 05/21/18 0423:~HPI-Genera l Illness~ ~General~Initial Greet Date/Time 05/20/182135~ ~Physical Exam~ ~Vital Signs~Vital Signs~ ~ ~Re-Evaluation MDM~ ~ED Course~Medicatio n(s) Ordered~ ~ ~Patient Discharge Departure~ ~Vital Signs/Condition~ Vital Signs~ ~ ~ at 0200~Electronica dagoberto Signed by Johnson Avalos MD on 05/21/18 at 0423~RPT #: [id number]~END OF REPORT~ other on 2016-06-20 Erythrocyte 12.5 % (no code) 11.6 - 14.6 % 06-20-2016 Not Av ailable distribution 16:28-0400 (51283) width (RBC) [Ratio] GFR/1.73 sq >60 (no code) 06-20-2016 Not Available M.predicted MDRD 16: (35888) (S/P/Bld) [Vol rate/Area] Globulin (S) 3.0 g/dL (no code) 2 - 3.5 g/dL 06-20-2016 Not Av ailable [Mass/Vol] 16: (00053) Immature 0.4 (no code) 06-20-2016 Not Available granulocytes 16: (32913) (Bld) [#/Vol] Lipase 24 U/L (no code) 10 - 73 U/L 06-20-2016 Not Availa ble [Catalytic 16: (29975) activity/Vol] MCHC (RBC) 35.2 g/dL (no code) 32 - 36 g/dL 06-20-2016 Not Avai lable [Mass/Vol] 16: (48443) Nucleated 0.0 (no code) 06-20-2016 Not Available RBC/100 WBC 16: (53260) (Bld) [Ratio] Platelet mean 9.7 fL (no code) 7.2 - 11.7 fL 06-20-2016 Not Available volume (Bld) 16: (68632) [Entitic vol] Segmented 84 % (null) 35 - 80 % 06-20-2016 Not Availabl e neutrophils/100 16: (56502) WBC (Bld) metabolic panel on 2016-06-20 Albumin 4.5 g/dL (no code) 3.4 - 5.4 g/dL 06-20-2016 Not Hetal ilable [Mass/Vol] 16: (88599) ALP [Catalytic 57 U/L (no code) 44 - 147 U/L 06-20-2016 Not Available activity/Vol] 16: (45100) ALT [Catalytic 31 U/L (no code) 4 - 40 U/L 06-20-2016 Not Av ailable activity/Vol] 16: (26534) Anion gap 13 (no code) 06-20-2016 Not Available [Moles/Vol] 16:59-0400 (60221) AST [Catalytic 27 U/L (no code) 10 - 34 U/L 06-20-2016 Not A vailable activity/Vol] 16:590400 (92963) Bilirubin 1.0 mg/dL (no code) 0.1 - 1.2 mg/dL 06-20-2016 Not Av ailable [Mass/Vol] 16:590400 (75918) Calcium 9.6 mg/dL (no code) 8.5 - 10.2 mg/dL 06-20-2016 Not A vailable [Mass/Vol] 16:590400 (35276) Chloride 105 mmol/L (no code) 95 - 106 mmol/L 06-20-2016 Not A vailable [Moles/Vol] 16:590400 (83991) CO2 [Moles/Vol] 24 mmol/L (no code) 23 - 29 mmol/L 06-20-2016 N ot Available 16:59 (46352) Creatinine 1.14 mg/dL (no code) 06-20-2016 Not Available [Mass/Vol] 16:590400 (72639) Glucose 123 mg/dL (null) 60 - 125 mg/dL 06-20-2016 Not Hetal ilable [Mass/Vol] 16:590400 (74639) Potassium 3.6 mmol/L (no code) 3.7 - 5.2 mmol/L 06-20-2016 Not Available [Moles/Vol] 16:590400 (67965) Protein 7.5 g/dL (no code) 6.4 - 8.3 g/dL 06-20-2016 Not Hetal ilable [Mass/Vol] 16:590400 (29973) Sodium 142 mmol/L (no code) 135 - 145 mmol/L 06-20-2016 Not Available [Moles/Vol] 16:590400 (93930) Urea nitrogen 25 mg/dL (null) 7 - 20 mg/dL 06-20-2016 Not A vailable [Mass/Vol] 16:590400 (22261) hematology on 2016-06-20 Basophils (Bld) 0.01 10*3/uL (no code) 0 - 0.3 10*3/uL 7 Not Available [#/Vol] 16:0 (97263) Basophils/100 0 % (no code) 0.5 - 1 % 06-20-2016 Not Avai lable WBC (Bld) 16: (27257) Eosinophils 0.04 10*3/uL (no code) 0.05 - 0.5 06-20-2016 Not Av ailable (Bld) [#/Vol] 10*3/uL 16: (22319) Eosinophils/100 0 % (no code) 1 - 4 % 06-20-2016 Not Av ailable WBC (Bld) 16: (20646) Hematocrit (Bld) 48.6 % (no code) 36.1 - 50.3 % 06-20-2016 N ot Available [Volume 16: (65812) fraction] Hemoglobin (Bld) 17.1 g/dL (no code) 12.1 - 17.2 g/dL 06-20-2016 Not Available [Mass/Vol] 16: (77638) Lymphocytes 0.76 10*3/uL (null) 0.9 - 2.9 06-20-2016 Not Hetal ilable (Bld) [#/Vol] 10*3/uL 16: (93628) Lymphocytes/100 8 % (null) 20 - 40 % 06-20-2016 Not Av ailable WBC (Bld) 16:0 (99898) MCH (RBC) 30.8 pg (no code) 27 - 31 pg 06-20-2016 Not Availab le [Entitic mass] 16: (35206) MCV (RBC) 87.6 fL (no code) 80 - 100 fL 06-20-2016 Not Availa ble [Entitic vol] 16:0 (24458) Monocytes (Bld) 0.65 10*3/uL (no code) 0.3 - 0.9 06-20-2016 Not Available [#/Vol] 10*3/uL 16:0 (48893) Monocytes/100 7 % (no code) 2 - 8 % 06-20-2016 Not Avai lable WBC (Bld) 16: (72604) Neutrophils 7.86 10*3/uL (null) 1.7 - 7 10*3/uL 06-20-2016 N ot Available (Bld) [#/Vol] 16: (73484) Platelets (Bld) 201 10*3/uL (no code) 150 - 450 06-20-2016 Not Available [#/Vol] 10*3/uL 16: (58507) RBC (Bld) 5.55 10*6/uL (no code) 4.2 - 6.1 06-20-2016 Not Avail able [#/Vol] 10*6/uL 16: (98619) WBC (Bld) 9.4 10*3/uL (no code) 3.5 - 10.5 06-20-2016 Not Avail able [#/Vol] 10*3/uL 16: (16364) Vital Signs The data below is from unstructured sources Vital Response Date/Time Temperature (Fahrenheit) 98 degrees F (97.6 - 99.5) Temperature (Calculated Celsius) 36. 6696 degrees C (36.4 - 37.5) Pulse Rate (adult) 82 bpm (60 - 90) Respiratory Rate 18 bpm (12 - 24) O2 Sat by Pulse Oximetry 98 % (88 - 100) Blood Pressure 121/87 mm Hg Pain Pain Intensity 6 Height (Feet) 6 feet Height (Inches) 0 inches Height (Calculated Centimeters) 182. 795823 cm Weight (Pounds) 220 pounds Weight (Calculated Kilograms) 99.790 322 kilograms Calculated BMI 29.83 Interventions No Information Plan of Treatment The data below is from unstructured sourcesNo plan of care. Goals No Information Social History No Information Functional Status The data below is from unstructured sourcesNo functional status results. Mental Status No Information Encounters Encounter Normalized Encounter Encounter Diagnosis Care [facility]vi [place] Organization Date Type 04-21-2019 Emergency department no information no name no organization name patient visit 03-08-2019 Emergency department no information no name no organization name - patient visit 03-08-2019 05-24-2018 Emergency department no information no name no organization name patient visit 05-21-2018 Emergency department no information no name no organization name patient visit 05-20-2018 Emergency department no information no name no organization name - patient visit 05-21-2018 06-20-2016 Emergency department no information no name no organization name - patient visit 06-20-2016 Emergency department no information no name no organi zation name patient visit 04-21-2019 Evaluation and no information no name no organ ization name - management of 04-21-2019 inpatient NEGATED Patient encounter no information no name no or ganization name 03-31-2017 - 04-01-2017 03-08-2019 Patient encounter no information no name no or ganization name procedure 03-08-2019 Patient encounter no information no name no or ganization name - procedure 03-08-2019 05-31-2018 Patient encounter no information no name no or ganization name - procedure 06-01-2018 05-24-2018 Patient encounter no information no name no or ganization name - procedure 05-25-2018 05-21-2018 Patient encounter no information no name no or ganization name - procedure 05-22-2018 Patient encounter no information no name no organizat ion name procedure Medical Equipment No Information Payers Normalized Payer Value [employer] [place] [employer] [facility] [id number] [facility] [id number] Worker's Compensation [id number] Worker's Compensation [id number] Clinical Note 2019-04-21 Note Type Note Facility Note ~[facility] ([facility] )~Operative Note - [place] Full~REPORT#:[id number] REPORT STATUS: S igned~DATE:04/21/19 TIME: 1723~ ~PATIENT: RAYNA Davis UNIT #: [id number]~ [id number] [address]OM[address] [birth year] AGE: 29 SEX: M AT TEND: Hernan Garibay MD~ADM AUTHOR: Phillip Garcia MD R1~ ~* ALL edits or amendments must be made on the electronic/computer document *~ ~ ~Oper ative Report~Start date: 04/21/19~Start time: 172~Pre-procedure diagnosis:~acu te appendicitis~Post-procedure diagnosis: same as pre-procedure dx~Procedures per formed:~Laparoscopic appendectomy~Technique/Procedure:~After informed consent was obtained the patient was taken to the operating room ~and placed in the supine position. General anesthesia was achieved, the ab domen ~was prepped and draped in the normal sterile fashion, and a timeout w as ~performed to ensure the correct patient and procedure. An 11 blade scal pel was ~used to make a 2cm supraumbilical incision and a hemostat was used to spred the ~subcutaneous tissue down to the fascia. The fascia w as grasped and elevated and ~a small incision was made. The 5mm port was ins erted into the incision and the ~abdomen was insufflated. The left later 12mm po rt and the suprapubic 5mm port ~were placed under direct visualization. The appendix was found in the RLQ and ~lateral abdominal wall adhesions where bluntly dissected to free the appendix ~and the cecum. The base of the appendi x was skeletonized and a space was made in~the mesoappendix. A blue load staple r was used to transect the base of the ~appendix. A white load stapler was use d to transect the meso appendix. The ~appendix was removed in an endocatch b ag and the abdomen was inspected for ~hemostasis. The 12mm port site was mallory sed with a fascial closure device and 2-0 ~vicryl. The insufflation was released and the ports were removed. The skin was ~closed with 4-0 monocryl. The incision s were dressed with dermabond. The patient~was stable and tolerated the pr ocedure.~ ~Dr. Garibay was present for and directed the entire case.~Primary Surge on: Dr. Garibay~Radiologic Electronic Specialist(s): Dr. Garcia~Anesthesia: general anesthesi a~Operative findings:~Acutely inflamed appendix~Complications: none~Estimated blood loss in ml's: none~Specimens removed/altered: APpendix~Implant(s): n one~ ~ at 1733~ at 1230~ ~RPT #: [id number]~END OF REPORT Clinical Note 2019-04-21 Note Type Note Facility Note ~[facility] ([facility] )~Operative Note - Arden Full~REPORT#:[id number] REPORT STATUS: S igned~DATE:04/21/19 TIME: 1723~ ~PATIENT: RAYNA Davis UNIT #: [id number]~ [id number] ROOM/BED: 43569 E.458-1~: 89 AGE: 29 SEX: M AT TEND: Hernan Garibay MD~ADM AUTHOR: Phillip Garcia MD R1~ ~* ALL edits or amendments must be made on the electronic/computer document *~ ~ ~Oper ative Report~Start date: 04/21/19~Start time: 1723~Pre-procedure diagnosis:~acu te appendicitis~Post-procedure diagnosis: same as pre-procedure dx~Procedures per formed:~Laparoscopic appendectomy~Technique/Procedure:~After informed consent was obtained the patient was taken to the operating room ~and placed in the supine position. General anesthesia was achieved, the ab domen ~was prepped and draped in the normal sterile fashion, and a timeout w as ~performed to ensure the correct patient and procedure. An 11 blade scal pel was ~used to make a 2cm supraumbilical incision and a hemostat was used to spred the ~subcutaneous tissue down to the fascia. The fascia w as grasped and elevated and ~a small incision was made. The 5mm port was ins erted into the incision and the ~abdomen was insufflated. The left later 12mm po rt and the suprapubic 5mm port ~were placed under direct visualization. The appendix was found in the RLQ and ~lateral abdominal wall adhesions where bluntly dissected to free the appendix ~and the cecum. The base of the appendi x was skeletonized and a space was made in~the mesoappendix. A blue load staple r was used to transect the base of the ~appendix. A white load stapler was use d to transect the meso appendix. The ~appendix was removed in an endocatch b ag and the abdomen was inspected for ~hemostasis. The 12mm port site was mallory sed with a fascial closure device and 2-0 ~vicryl. The insufflation was released and the ports were removed. The skin was ~closed with 4-0 monocryl. The incision s were dressed with dermabond. The patient~was stable and tolerated the pr ocedure.~ ~Dr. Garibay was present for and directed the entire case.~Primary Surge on: Dr. Garibay~Radiologic Electronic Specialist(s): Dr. Garcia~Anesthesia: general anesthesi a~Operative findings:~Acutely inflamed appendix~Complications: none~Estimated blood loss in ml's: none~Specimens removed/altered: APpendix~Implant(s): n one~ ~ at 1733~ ~RPT #: [id number]~END OF REPORT Summary Purpose eClinicalWorks SubmissioneClinicalWorks SubmissioneClinicalWorks SubmissioneClinicalWorks SubmissioneClinicalWorks SubmissioneClinicalWorks SubmissioneClinicalWorks SubmissioneClinicalWorks Submission Advance Directives Directive Response Recor ded Date/Time Advance Directives No 9:19am Health Care Power of Cardiac Exercise Specialist No 12/25/13 9:19am Organ Donor No 12/25/13 9:19am Resuscitation Status Full Code 12/25/13 9:19am Discharge Instructions No hospital discharge instructions. Assessments and Plan Title: Office Author: Christy, Date: Visit Note Olegario Flores APRN 03/31/17 1.??Frontal sinusitis ??Instructed patient on medication, use, common side effects, and administration. Discussed proper OTC medication, including [Tylenol, ibuprofen,??antihistamine], for symptomatic relief.?? Discussed use of OTC saline nasal rinses, decongestants, salt water gargles,??and cool mist humidifier for symptomatic relief.?? Encouraged patient to increase fluid intake to facilitate the thinning??and draining??mucosal secretions.?? Instructed patient if symptoms worsen or new symptoms arise to seek medical attention here or at the ER. Instructed patient if symptoms do not improve follow up with PCP in 2-3 days. Patient voiced understanding and agreed with treatment plan. Patient dismissed in stable condition. Ordered: amoxicillin-clavulanate, 1 tabs, Oral, q8hr, X 7 days, # 21 tabs, 0 Refill(s), Pharmacy: [facility] [id number] Office Visit Level 3 Est 25167 ?? Additional Source Comments This clinical document has been generated using [employer] software that has been certified by the Office of the National Coordinator for Health Information Technology (ONC 15.99.04.3023.Diam.31.00.0.070948) and the National Committee for [employer] (NCQA, as an eMeasure certified technology). FOR RECORDS PERTAINING TO PATIENTS WHO ARE OR HAVE BEEN ENROLLED IN A CHEMICAL D EPENDENCY/SUBSTANCE ABUSE PROGRAM, SOME INFORMATION MAY BE OMITTED. This clinica l summary was aggregated from multiple sources. Caution should be exercised in using it in the provision of clinical care. This summary normalizes information from multiple sources, and as a consequence, information in this document may ma terially change the coding, format and clinical context of patient data. In june tion, data may be omitted in some cases. CLINICAL DECISIONS SHOULD BE BASED ON T HE PRIMARY CLINICAL RECORDS. [employer] provides no warranty or guara ntee of the accuracy or completeness of information in this document.The followi ng information is based on time limited clinical information UNRECOGNIZED CONTENT PROVIDED BELOW FOR UNRECOGNIZED SECTION REASON FOR VISIT REW-XlbBOR-HjtLIV-Daniel UNRECOGNIZED CONTENT PROVIDED BELOW FOR UNRECOGNIZED SECTION MEDICAL (GENERAL) HISTORY Type Description Date Medical History depression Medical History Hypothyroidism Surgical History Benign tumor remove d from right shoulder 2009
--- OUTSIDE RECORDS SUMMARY | 2019-09-11 18:49 | XMS REPORT | Continuity of Care Document ---
Demographics Preferred Language Unknown Marital Status Unknown Amish Affiliation Unknown Race Unknown Ethnic Group Unknown Author Author [facility] Organization [facility] Address Unknown Phone Unavailable Care Team Providers Care Law Firm Receptionist Name Role Phone [facility] Unavailable Unavailable Problems No Data Provided for This Section Medications No Data Provided for This Section Allergies, Adverse Reactions, Alerts No Known Medication Allergies Immunizations No Data Provided for This Section Results No Data Provided for This Section Vital Signs No Data Provided for This Section Encounters No Data Provided for This Section Procedures No Data Provided for This Section Social History Combined list of available smoking, tobacco, and other social history on record at Department of Defense and/or Veterans Affairs facilities. The included entrie s comply with the patient's data sharing authorizations. Social History Type Response Date Comment Source This section is an empty social history section. [facility] Assessment and Plan No Data Provided for This Section Plan of Care No Data Provided for This Section Family History No Data Provided for This Section Advance Directives No Data Provided for This Section Functional Status No Data Provided for This Section
--- OUTSIDE RECORDS SUMMARY | 2019-09-11 18:49 | XMS REPORT | Referral Summary ---
Author Author [facility] Organization [facility] Address Unknown Phone Unavailable Care Team Providers Care Copy Technician Name Role Phone No PCP, Pt States PCP Encounter [facility] Date(s): 06/20/16 - 06/20/16 [facility] [address] [place] [address] Discharge Diagnosis: Vomiting Discharge Diagnosis: Gastritis Discharge Diagnosis: Diarrhea Discharge Disposition: 01-Home or Self Care Attending Physician: Kelvin Pedersen MD Admitting Physician: Kelvin Pedersen MD Vital Signs Most recent to 1 oldest [Reference Range]: Temperature Oral 36.5 degC [35.8-37.3 degC] (06/20/16 2:53 PM) Peripheral Pulse 96 bpm Rate [60-100 bpm] (06/20/16 5:15 PM) Respiratory Rate 18 br/min [14-20 br/min] (06/20/16 5:15 PM) Blood Pressure 124/78 mmHg [90-140/60-90 mmHg] (06/20/16 5:15 PM) SpO2 100 % (06/20/16 5:15 PM) Problem List No Known Problems Allergies, Adverse Reactions, Alerts No Known Medication Allergies Medications Carafate 1 g oral tablet 1 g 1 tabs, Oral, BID, # 60 tabs, 0 Refill(s) Start Date: 06/20/16 Status: Ordered Zofran 4 mg oral tablet 4 mg 1 tabs, Oral, q4hr, Nausea or Vomiting | as needed for nausea/vomiting, # 1 0 tabs, 0 Refill(s) Start Date: 06/20/16 Status: Ordered Results Hematology Most recent to 1 oldest [Reference Range]: WBC [4.8-10.8 9.4 10*3/uL 10*3/uL] (06/20/16 3:17 PM) RBC [4.60-6.20] 5.55 (06/20/16 3:17 PM) Hgb [14.0-18.0 17.1 gm/dL gm/dL] (06/20/16 3:17 PM) Hct [42.0-52.0 %] 48.6 % (06/20/16 3:17 PM) MCV [82.0-99.0 fL] 87.6 fL (06/20/16 3:17 PM) MCH [27.0-32.0 pg] 30.8 pg (06/20/16 3:17 PM) MCHC [32.0-36.0 35.2 gm/dL gm/dL] (06/20/16 3:17 PM) RDW [11.5-14.5 %] 12.5 % (06/20/16 3:17 PM) Platelet [150-400 201 10*3/uL 10*3/uL] (06/20/16 3:17 PM) MPV [9.4-12.3 fL] 9.7 fL (06/20/16 3:17 PM) Immature 0.4 % Granulocytes (06/20/16 3:17 PM) [0.0-1.0 %] Neutrophils [51-75 84 % %] *HI* (06/20/16 3:17 PM) Lymphocytes [20-46 8 % %] *LOW* (06/20/16 3:17 PM) Monocytes [4-11 %] 7 % (06/20/16 3:17 PM) Eosinophils [0-4 %] 0 % (06/20/16 3:17 PM) Basophils [0-2 %] 0 % (06/20/16 3:17 PM) Neutro Absolute 7.86 [1.90-7.00] *HI* (06/20/16 3:17 PM) Lymph Absolute 0.76 [0.80-3.30] *LOW* (06/20/16 3:17 PM) [place]ois Absolute 0.65 [0.30-1.00] (06/20/16 3:17 PM) Eos Absolute 0.04 [0.00-0.50] (06/20/16 3:17 PM) Baso Absolute 0.01 [0.00-0.20] (06/20/16 3:17 PM) Nucleated RBC 0.0 /100 WBC Automated [0 /100 (06/20/16 3: PM) WBC] Chemistry Most recent to 1 oldest [Reference Range]: Sodium Lvl [136-144 142 mEq/L mEq/L] (06/20/16 3:17 PM) Potassium Lvl 3.6 mEq/L [3.6-5.1 mEq/L] (06/20/16 3:17 PM) Chloride [99-109 105 mEq/L mEq/L] (06/20/16 3:17 PM) CO2 [22-32 mEq/L] 24 mEq/L (06/20/16 3:17 PM) AGAP [3-20] 13 (06/20/16 3: PM) BUN [4-20 mg/dL] 25 mg/dL *HI* (06/20/16 3:17 PM) Glucose Lvl [70-100 123 mg/dL mg/dL] *HI* (06/20/16 3: PM) Creatinine Lvl 1.14 mg/dL [0.64-1.27 mg/dL] (06/20/16 3:17 PM) eGFR [>60] >60 1 (06/20/16 3: PM) Calcium Lvl 9.6 mg/dL [8.6-10.0 mg/dL] (06/20/16 3:17 PM) Albumin Lvl [3.5-4.8 4.5 gm/dL gm/dL] (06/20/16 3: PM) Total Protein 7.5 gm/dL [6.1-7.9 gm/dL] (06/20/16 3:17 PM) Globulin [1.9-4.3 3.0 gm/dL gm/dL] (06/20/16 3:17 PM) ALT [17-63 U/L] 31 U/L (06/20/16 3:17 PM) AST [15-41 U/L] 27 U/L (06/20/16 3:17 PM) Alk Phos [26-104 57 U/L U/L] (06/20/16 3: PM) Bili Total [0.2-1.2 1.0 mg/dL 2 mg/dL] (06/20/16 3:17 PM) Lipase Lvl [8-48 24 U/L U/L] (06/20/16 3:17 PM) 1Result Comment: Multiply eGFR results by 1.21 for race. 2Result Comment: Naproxen, specifically the metabolite O-desmethylnaproxen, may cause spurious elevation in Total Bilirubin levels. Urinalysis Most recent to 1 oldest [Reference Range]: UA Color Yellow (06/20/16 4:00 PM) UA Appear Clear (06/20/16 4:00 PM) UA pH [5.0-8.0] 7.0 (06/20/16 4:00 PM) UA Leuk Est Negative [Negative] (06/20/16 4:00 PM) UA Nitrite Negative [Negative] (06/20/16 4:00 PM) UA Protein Negative [Negative] (06/20/16 4:00 PM) UA Glucose Negative [Negative] (06/20/16 4:00 PM) UA Ketones Negative [Negative] (06/20/16 4:00 PM) UA Urobilinogen Negative [<1.0] (06/20/16 4:00 PM) UA Bili [Negative] Negative (06/20/16 4:00 PM) UA Blood [Negative] Negative (06/20/16 4:00 PM) UA Spec Grav 1.030 [1.003-1.030] (06/20/16 4:00 PM) Type Catheter (06/20/16 4:00 PM) Immunizations No data available for this section Procedures No data available for this section Social History Social History Type Response Smoking Status Never smoker Assessment and Plan No data available for this section"
--- OUTSIDE RECORDS SUMMARY | 2019-09-11 18:50 | XMS REPORT ---
Author Author Felipe ACEVES Organization [facility] Address [address] [place] [address] Care Team Providers Care Primary Care Md Name Role Phone ARNOLDO AECVES Unavailable PROBLEMS Type Condition ICD9-CM Code XGF18-IT Code Onset Dates Condition S tatus SNOMED Code Problem Screening examination for pulmonary tuberculosis V74.1 Active 446862257 Problem Routine general medical [facility] at [facility] V70.0 Active 394257882 Problem Health examination of defined subpopulation V70.5 Active 864363729 Problem Sprain and strain of unspecified site of shoulder and upper arm 840.9 Active 476955503 Problem DTAP TEST V06.1 Active Problem Post-traumatic headache, unspecified 339.20 Active 686986631 Problem Depressive disorder, not elsewhere classified 311 Active 98499398 Problem Anxiety state, unspecified 300.00 Act madeline 982689580 Problem Dysthymia F34.1 Active 55578829 Problem Sciatica 724.3 Active 51404149 Problem Pain in right hand M79.641 Active 5 0961764 Problem Memory loss 780.93 Active 28214227 Problem Mood disorder in conditions classified elsewhere 293.83 Active 35859899 Problem Unspecified hypothyroidism 244.9 Act madeline 57441692 Problem Pain of left hand M79.642 Active 53 344823 Problem Sciatica of left side M54.32 Active 13172415 ALLERGIES No Information ENCOUNTERS Encounter Location Date Diagnosis [place] [address] [facility] [id number] [place] [id number] Feb, Non-intractable vomiting, presence of na usea not specified, unspecified vomiting type R11.10 ; Cough R05 and Post-nasal drainage R09.82 [facility] [id number] [place], [place] [id number] Jan, Folliculitis abscedens et suffodiens L66 .3 [place] [id number] [place] [id number] Nov, Dysthymia F34.1 [facility] [address] [facility] [id number] [place] [id number] Oct, [facility] [address] [facility] [id number] [place] [id number] Oct, Dysthymia F34.1 [facility] [id number] [place] [id number] Sep, Dysthymia F34.1 ; Pain in right hand M79 .641 ; Pain of left hand M79.642 and Sciatica of left side M54.32 [place] [id number] [place] [id number] August, [facility] [address] [place] [id number] [place] [address], [place] [id number] Jun, Moderate episode of recurrent major depr essive disorder F33.1 and Hypothyroidism, unspecified type E03.9 [place] [id number] [place] [address], [place] [id number] Jun, Fatigue, unspecified type R53.83 [place] [address] [phone] Jan, Rupture of extensor tendon o f finger M66.88 and Rupture of radial collateral ligament of right thumb S53.21XA [facility] [address] [address] Jan, Pain of right thumb M79.644 [place] [id number] [place] [address], [place] [id number] Jan, Pain of right thumb M79.644 and Dislocat ion of interphalangeal joint of right thumb S63.124A [place] [id number] [place] [address], [place] [id number] Sep, Sore throat (viral) 462 and URI (upper r espiratory infection) 465.9 [facility] [address] [address] Jul, [facility] [address] [id number] [address] [place] [address] Jul, [facility] [address] [id number] [address] [place] [phone] Jan, [facility] [place] [address] [id number] [place] [id number] Jan, [facility] [place] [address] [id number] [place] [id number] Jan, [facility] [address] [id number] [address] [place] [address], [place] [address] Jan, [facility] [place] [address] [id number] [place] [id number] Nov, [facility] [place] [address] [id number] [place] [id number] Oct, [facility] [place] [address] [id number] [place] [id number] Sep, [facility] [place] [address] [id number] [place] [id number] Jun, [facility] [place] [address] [id number] [place] [id number] Jun, [facility] [place] [address] [id number] [place] [id number] Jun, [facility] [address] [id number] [address] [place] [phone] Jan, [facility] [address] [id number] [address] [place] [phone] Nov, [facility] [address] [id number] [address] [place] [phone] Oct, [facility] [address] [id number] [address] [place] [phone] Oct, [facility] [address] [facility] [id number] [address] [place] [phone] Oct, [facility] [address] [id number] [address] [place] [phone] 11 Oct, 2011 [facility] [address] [facility] [id number] [address] [place] [phone] Oct, [facility] [address] [facility] [facility] [id number] [address] [place] [phone] 15 Sep, 2011 [facility] [address] [facility] [facility] [id number] [address] [place] [phone] Sep, [facility] [address] [facility] [facility] [id number] [address] [place] [phone] Sep, [facility] [address] [facility] [id number] [address] [place] [phone] Jun, [facility] [address] [facility] [id number] [address] [place] [phone] Nov, IMMUNIZATIONS No Known Immunizations SOCIAL HISTORY Never Assessed REASON FOR VISIT PLAN OF CARE VITAL SIGNS MEDICATIONS No Known Medications RESULTS No Results PROCEDURES No Known procedures INSTRUCTIONS MEDICATIONS ADMINISTERED No Known Medications MEDICAL (GENERAL) HISTORY Type Description Date Medical History depression Medical History Hypothyroidism Surgical History Benign tumor removed from right shoulder 2009
--- OUTSIDE RECORDS SUMMARY | 2019-09-11 18:50 | XMS REPORT ---
Author Author RIVERAFelipe LOVING Y Organization [employer] Address Unknown Phone Unavailable Care Team Providers Care Counter Intelligence Name Role Phone MIGUEL GILLNAVYA VALENCIA Unavailable Allergies, Adverse Reactions, Alerts Substance Reaction Event Type N.K.D.A. Info Not Available Non Drug Allergy Problems Problem Type Condition Code Onset Dates Condition Statu s Problem DTAP TEST V06.1 Active Problem Post-traumatic headache, unspecified 339.20 Active Problem Routine general medical examination at [facility] V70.0 Active Problem Pain in right hand M79.641 Active Problem Pain of left hand M79.642 Active Problem Dysthymia F34.1 Active Problem Unspecified hypothyroidism 244.9 A ctive Problem Memory loss 780.93 Active Problem Sciatica of left side M54.32 Active Problem Mood disorder in conditions classified elsewhere 293.8 3 Active Assessment Cough R05 Active Assessment Non-intractable vomiting, pr esence of nausea not specified, unspecified vomiting type R11.10 Active Assessment Post-nasal drainage R09.82 Active Problem Depressive disorder, not elsewhere classified 311 Active Problem Sciatica 724.3 Active Problem Screening examination for pulmonary tuberculosis V74.1 Active Problem Sprain and strain of unspecified site of shoulder and upper arm 840.9 Active Problem Anxiety state, unspecified 300.00 A ctive Problem Health examination of defined subpopulation V70.5 Active Medications Medication Code System Code Instructions Start Date End Date Status Dosage Promethazine HCl [facility] [address]-68 50 mg Orally every 12 hrs Feb 21, 2016 0.5 tablet as needed Procedures Procedure Coding System Code Date INFLUENZA ASSAY W/OPTIC CPT-4 44983 Feb 21, 2016 Office Visit, Est Pt., Level 3 CPT-4 67460 N 2015 Vital Signs Date/Time: Feb 21, 2016 Cardiac Monitoring Heart Rate 72 bpm Weight 216.0 lbs Height 72 in BMI 29.29 Index Blood Pressure Diastolic 64 mmHg Blood Pressure Systolic 120 mmHg Results Name Result Date Reference Range Unit Abnormali ty Flag INFLUENZA A & B (IN HOUSE) ----Exp date 11/09/1620160221 ----INFLUENZA A negative 20160221 ----INFLUENZA B negative 20160221 ----Control positive 20160221 ----Lot # [id number] Summary Purpose [employer] Submission
--- OUTSIDE RECORDS SUMMARY | 2019-09-11 18:50 | XMS REPORT ---
Author Author Felipe Suárez Doctor Organization [facility] Address Unknown Phone Unavailable Care Team Providers Care Associate Programmer Name Role Phone Migration, Doctor Unavailable Unavailable PROBLEMS Type Condition ICD9-CM Code HVM23-IZ Code Onset Dates Condition S tatus SNOMED Code Problem Screening examination for pulmonary tuberculosis V74.1 Active 281536799 Problem Routine general medical examination at health care [facility] y V70.0 Active 136787814 Problem Health examination of defined subpopulation V70.5 Active 599359507 Problem Sprain and strain of unspecified site of shoulder and upper arm 840.9 Active 932268274 Problem DTAP TEST V06.1 Active Problem Post-traumatic headache, unspecified 339.20 Active 720568846 Problem Depressive disorder, not elsewhere classified 311 Active 24127313 Problem Anxiety state, unspecified 300.00 Act madeline 387371878 Problem Dysthymia F34.1 Active 62747573 Problem Sciatica 724.3 Active 59435773 Problem Pain in right hand M79.641 Active 5 6294934 Problem Memory loss 780.93 Active 18035750 Problem Mood disorder in conditions classified elsewhere 293.83 Active 05624617 Problem Unspecified hypothyroidism 244.9 Act madeline 32274848 Problem Pain of left hand M79.642 Active 53 335181 Problem Sciatica of left side M54.32 Active 23202901 ALLERGIES No Information ENCOUNTERS Encounter Location Date Diagnosis [id number] S [id number] Feb, Non-intractable vomiting, presence of na usea not specified, unspecified vomiting type R11.10 ; Cough R05 and Post-nasal drainage R09.82 [id number] S [id number] Jan, Folliculitis abscedens et suffodiens L66 .3 [address], [place] [id number] Nov, Dysthymia F34.[address] [id number] [place] [id number] Oct, [facility] [address] [facility] [id number] [place] [id number] Oct, Dysthymia F34.1 [facility] [address] [facility] [address] [id number] [place] [id number] Sep, Dysthymia F34.1 ; Pain in right hand M79 .641 ; Pain of left hand M79.642 and Sciatica of left side M54.32 [facility] [address] [facility] [address] [id number] [place] [id number] August, [facility] [address] [facility] [id number] [place] [id number] Jun, Moderate episode of recurrent major depr essive disorder F33.1 and Hypothyroidism, unspecified type E03.9 [facility] [address] [place] [id number] [place] [address], [place] [id number] Jun, Fatigue, unspecified type R53.83 [place] [address] [address] Jan, Rupture of extensor tendon o f finger M66.88 and Rupture of radial collateral ligament of right thumb S53.21XA [place] [address] [address] Jan, Pain of right thumb M79.644 [place] [id number] [place] [address], [place] [id number] Jan, Pain of right thumb M79.644 and Dislocat ion of interphalangeal joint of right thumb S63.124A [facility] [address] [place] [id number] [place], [place] [address], [place] [id number] Sep, Sore throat (viral) 462 and URI (upper r espiratory infection) 465.9 [place] [address] [address] Jul, [place] [address] [address] Jul, [facility] [address] [id number] [address] [place] [address] Jan, [facility] [place] [address] [id number] [place] [id number] Jan, [facility] [place] [address] [id number] [place] [id number] Jan, [facility] [address] [id number] [address] [place] [address] Jan, [facility] [place] [address] [id number] [place] [id number] Nov, [facility] [place] [address] [id number] [place] [id number] Oct, [facility] [place] [address] [id number] [place] [id number] Sep, [facility] [place] [address] [id number] [place] [id number] Jun, [facility] [place] [address] [id number] [place] [id number] Jun, [facility] [place] [address] [id number] [place] [id number] Jun, [facility] [address] [facility] [id number] [address] [place] [address] Jan, [facility] [address] [facility] [id number] [address] [place] [phone] Nov, [facility] [address] [id number] [address] [place] [phone] Oct, [facility] [address] [facility] [id number] [address] [place] [phone] Oct, [facility] [address] [facility] [id number] [address] [place] [phone] Oct, [facility] [address] [facility] [id number] [address] [place] [phone] Oct, [facility] [address] [facility] [id number] [address] [place] [phone] Oct, [facility] [address] [facility] [id number] [address] [place] [phone] 15 Sep, 2011 [facility] [address] [facility] [id number] [address] [place] [phone] 13 Sep, 2011 [facility] [address] [facility] [id number] [address] [place] [phone] Sep, [facility] [address] [facility] [id number] [address] [place] [phone] Jun, [facility] [address] [facility] [id number] [address] [place] [address] Nov, IMMUNIZATIONS No Known Immunizations SOCIAL HISTORY Never Assessed REASON FOR VISIT [facility] [place]AN OF CARE VITAL SIGNS MEDICATIONS No Known Medications RESULTS No Results PROCEDURES No Known procedures INSTRUCTIONS MEDICATIONS ADMINISTERED No Known Medications MEDICAL (GENERAL) HISTORY Type Description Date Medical History depression Medical History Hypothyroidism Surgical History Benign tumor removed from right shoulder 2009
--- OUTSIDE RECORDS SUMMARY | 2019-09-11 18:50 | XMS REPORT ---
Author Author Felipe VALENCIA [facility] [employer] Address Unknown Phone Unavailable Care Team Providers Care Kitchen Lead Name Role Phone JOHNSON VALENCIA Unavailable Allergies No Known Allergies Problems Problem Type Condition Code Onset Dates Condition Statu s Problem Depressive disorder, not elsewhere classified 311 Active Problem Sprain and strain of unspecified site of shoulder and upper arm 840.9 Active Problem Sciatica 724.3 Active Problem Unspecified hypothyroidism 244.9 A ctive Problem Memory loss 780.93 Active Problem Mood disorder in conditions classified elsewhere 293.8 3 Active Problem DTAP TEST V06.1 Active Problem Health examination of defined subpopulation V70.5 Active Problem Post-traumatic headache, unspecified 339.20 Active Problem Routine general medical examination at [facility] V70.0 Active Assessment Rupture of radial collateral ligament of right thumb S 53.21XA Active Assessment Rupture of extensor tendon of finger M66.88 Active Problem Screening examination for pulmonary tuberculosis V74.1 Active Problem Anxiety state, unspecified 300.00 A ctive Medications No Known Medications Procedures Procedure Coding System Code Date Office Visit, Est Pt., Level 3 CPT-[address] 2014 Vital Signs Date/Time: Feb 01, 2015 Blood Pressure Diastolic 76 mmHg Blood Pressure Systolic 120 mmHg Height 72 in Results No Known Results Summary Purpose eClinicalWorks Submission
--- OUTSIDE RECORDS SUMMARY | 2019-09-11 18:50 | XMS REPORT ---
Author Author Felipe Suárez Doctor Organization [facility] Address Unknown Phone Unavailable Care Team Providers Care Club Concierge Name Role Phone Migration, Doctor Unavailable Unavailable PROBLEMS Type Condition ICD9-CM Code QOI83-WX Code Onset Dates Condition S tatus SNOMED Code Problem Screening examination for pulmonary tuberculosis V74.1 Active 526396963 Problem Routine general medical examination at [facility] y V70.0 Active 630950671 Problem Health examination of defined subpopulation V70.5 Active 880581788 Problem Sprain and strain of unspecified site of shoulder and upper arm 840.9 Active 214933311 Problem DTAP TEST V06.1 Active Problem Post-traumatic headache, unspecified 339.20 Active 157733861 Problem Depressive disorder, not elsewhere classified 311 Active 65237760 Problem Anxiety state, unspecified 300.00 Act madeline 481341939 Problem Dysthymia F34.1 Active 74654212 Problem Sciatica 724.3 Active 30561687 Problem Pain in right hand M79.641 Active 5 8080365 Problem Memory loss 780.93 Active 75601195 Problem Mood disorder in conditions classified elsewhere 293.83 Active 29669841 Problem Unspecified hypothyroidism 244.9 Act madeline 51188140 Problem Pain of left hand M79.642 Active 53 984490 Problem Sciatica of left side M54.32 Active 75405939 ALLERGIES No Information ENCOUNTERS Encounter Location Date Diagnosis [id number] S [id number] Feb, Non-intractable vomiting, presence of na usea not specified, unspecified vomiting type R11.10 ; Cough R05 and Post-nasal drainage R09.82 [address] S [id number] Jan, Folliculitis abscedens et suffodiens L66 .3 [id number], [place] [id number] Nov, Dysthymia F34.[address] [id number] [place] [id number] Oct, [facility] [address] [facility] [id number] [place] [id number] Oct, Dysthymia F34.1 [facility] [address] [facility] [id number] [place] [id number] Sep, Dysthymia F34.1 ; Pain in right hand M79 .641 ; Pain of left hand M79.642 and Sciatica of left side M54.32 [facility] [address] [facility] [id number] [place] [id number] August, [facility] [address] [facility] [id number] [place] [id number] Jun, Moderate episode of recurrent major depr essive disorder F33.1 and Hypothyroidism, unspecified type E03.9 [facility] [address] [place] [id number] [place] [address], [place] [id number] Jun, Fatigue, unspecified type R53.83 [place] [address] [address] Jan, Rupture of extensor tendon o f finger M66.88 and Rupture of radial collateral ligament of right thumb S53.21XA [place] [address] [address] Jan, Pain of right thumb M79.644 [place] [id number] [place] [address], [place] [id number] Jan, Pain of right thumb M79.644 and Dislocat ion of interphalangeal joint of right thumb S63.124A [facility] [address] [id number] [place], [place] [address], [place] [id number] Sep, Sore throat (viral) 462 and URI (upper r espiratory infection) 465.9 [place] [address] [address] Jul, [place] [address] [address] Jul, [facility] [address] [id number] [address] [place] [address] Jan, [facility] [place] [address] [id number] [place] [id number] Jan, [facility] [place] [address] [id number] [place] [id number] Jan, [facility] [address] [id number] [address] [place] [phone] Jan, [facility] [place] [address] [id number] [place] [id number] Nov, [facility] [place] [address] [id number] [place] [id number] Oct, [facility] [place] [address] [id number] [place] [id number] Sep, [facility] [place] [address] [id number] [place] [id number] Jun, [facility] [place] [address] [id number] [place] [id number] Jun, [facility] [place] [address] [id number] [place] [id number] Jun, [facility] [address] [facility] [id number] [address] [place] [phone] Jan, [facility] [address] [facility] [id number] [address] [place] [phone] Nov, [facility] [address] [id number] [address] [place] [phone] Oct, [facility] [address] [facility] [id number] [address] [place] [id number] Oct, [facility] [address] [facility] [id number] [address] [place] [phone] Oct, [facility] [address] [facility] [id number] [address] [place] [phone] Oct, [facility] [address] [facility] [id number] [address] [place] [phone] Oct, [facility] [address] [facility] [id number] [address] [place] [phone] 15 Sep, 2011 [facility] [address] [facility] [id number] [address] [place] [id number] 13 Sep, 2011 [facility] [address] [facility] [id number] [address] [place] [address] Sep, [facility] [address] [facility] [id number] [address] [place] [phone] Jun, [facility] [address] [facility] [id number] [address] [place] [phone] Nov, IMMUNIZATIONS No Known Immunizations SOCIAL HISTORY Never Assessed REASON FOR VISIT [place] [place] VITAL SIGNS MEDICATIONS Medication Instructions Dosage Frequency Start Date End Date Duration S tatus Valium 5 mg 1 tablet by Oral rou te 1 time per day for 5 daysat night with Paxil Oct, Active Fluoxetine 20 mg 1 capsule by Oral route 1 time per day Jan, Active Ibuprofen 800 mg take 1 tablet (800 m g) by oral route 3 times per day with food Jan, Active RESULTS No Results PROCEDURES No Known procedures INSTRUCTIONS MEDICATIONS ADMINISTERED No Known Medications MEDICAL (GENERAL) HISTORY Type Description Date Medical History depression Medical History Hypothyroidism Surgical History Benign tumor removed from right shoulder 2009
--- OUTSIDE RECORDS SUMMARY | 2019-09-11 18:50 | XMS REPORT ---
Author Author Felipe TORREZ Organization [address] Address [address] [place] [address] Care Team Providers Care Drawing Tender Name Role Phone CHARLIE TORREZ Unavailable PROBLEMS Type Condition ICD9-CM Code WOY71-SY Code Onset Dates Condition S tatus SNOMED Code Problem Screening examination for pulmonary tuberculosis V74.1 Active 116045231 Problem Routine general medical examination at [facility] V70.0 Active 717397253 Problem Health examination of defined subpopulation V70.5 Active 623531355 Problem Sprain and strain of unspecified site of shoulder and upper arm 840.9 Active 525563753 Problem DTAP TEST V06.1 Active Problem Post-traumatic headache, unspecified 339.20 Active 347916396 Problem Depressive disorder, not elsewhere classified 311 Active 30688279 Problem Anxiety state, unspecified 300.00 Act madeline 110949991 Problem Dysthymia F34.1 Active 90381975 Problem Sciatica 724.3 Active 79775309 Problem Pain in right hand M79.641 Active 5 3015591 Problem Memory loss 780.93 Active 46456684 Problem Mood disorder in conditions classified elsewhere 293.83 Active 11382966 Problem Unspecified hypothyroidism 244.9 Act madeline 01268849 Problem Pain of left hand M79.642 Active 53 137060 Problem Sciatica of left side M54.32 Active 93207421 ALLERGIES No Information ENCOUNTERS Encounter Location Date Diagnosis [facility] [address] [facility] [id number] [place] [id number] Feb, Non-intractable vomiting, presence of na usea not specified, unspecified vomiting type R11.10 ; Cough R05 and Post-nasal drainage R09.82 [facility] [address] [place] [id number] [place] [id number] Jan, Folliculitis abscedens et suffodiens L66 .3 [place] [id number] [place] [id number] Nov, Dysthymia F34.1 [facility] [address] [facility] [id number] [place] [id number] Oct, [facility] [address] [facility] [id number] [place] [id number] Oct, Dysthymia F34.1 [facility] [id number] [place] [id number] Sep, Dysthymia F34.1 ; Pain in right hand M79 .641 ; Pain of left hand M79.642 and Sciatica of left side M54.32 [place] [id number] [place] [id number] August, [facility] [address] [place] [id number] [place] [address], [place] [id number] Jun, Moderate episode of recurrent major depr essive disorder F33.1 and Hypothyroidism, unspecified type E03.9 [place] [id number] [place] [address], [place] [id number] Jun, Fatigue, unspecified type R53.83 [place] [address] [address] Jan, Rupture of extensor tendon o f finger M66.88 and Rupture of radial collateral ligament of right thumb S53.21XA [facility] [address] [address] Jan, Pain of right thumb M79.644 [place] [id number] [place] [address], [place] [id number] Jan, Pain of right thumb M79.644 and Dislocat ion of interphalangeal joint of right thumb S63.124A [place] [id number] [place] [address], [place] [id number] Sep, Sore throat (viral) 462 and URI (upper r espiratory infection) 465.9 [facility] [address] [address] Jul, [facility] [address] [id number] [address] [place] [address] Jul, [facility] [address] [id number] [address] [place] [address] Jan, [facility] [place] [address] [id number] [place] [id number] Jan, [facility] [place] [address] [id number] [place] [id number] Jan, [facility] [address] [id number] [address] [place] [address], [place] [address] Jan, [facility] [place] [address] [id number] [place] [id number] Nov, [facility] [place] [address] [id number] [place] [id number] Oct, [facility] [place] [address] [id number] [place] [id number] Sep, [facility] [place] [address] [id number] [place] [id number] Jun, [facility] [place] [address] [id number] [place] [id number] Jun, [facility] [place] [address] [id number] [place] [id number] Jun, [facility] [address] [id number] [address] [place] [address] Jan, [facility] [address] [id number] [address] [place] [phone] Nov, [facility] [address] [id number] [address] [place] [address] Oct, [facility] [address] [id number] [address] [place] [address] Oct, [facility] [address] [facility] [id number] [address] [place] [address] Oct, [facility] [address] [id number] [address] [place] [id number] 11 Oct, 2011 [facility] [address] [id number] [address] [place] [phone] 11 Oct, 2011 [facility] [address] [facility] [id number] [address] [place] [id number] 15 Sep, 2011 [facility] [address] [facility] [id number] [address] [place] [address] Sep, [facility] [address] [facility] [id number] [address] [place] [address] Sep, [facility] [address] [facility] [id number] [address] [place] [address] Jun, [facility] [address] [facility] [id number] [address] [place] [address] Nov, IMMUNIZATIONS No Known Immunizations SOCIAL HISTORY Never Assessed REASON FOR VISIT PLAN OF CARE VITAL SIGNS Height 72 in 2012-09-16 Weight 198 lbs 2012-09-16 Temperature 97.6 degrees Fahrenheit 2012-09-16 Heart Rate 82 bpm 2012-09-16 Respiratory Rate 16 2012-09-16 Blood pressure systolic 100 mmHg 2012-09-16 Blood pressure diastolic 60 mmHg 2012-09-16 MEDICATIONS No Known Medications RESULTS No Results PROCEDURES Procedure Date Ordered Result Body Site DRUG SCREEN, QUALITATE/MULTI September 16, 2012 INSTRUCTIONS MEDICATIONS ADMINISTERED No Known Medications MEDICAL (GENERAL) HISTORY Type Description Date Medical History depression Medical History Hypothyroidism Surgical History Benign tumor removed from right shoulder 2009
--- OUTSIDE RECORDS SUMMARY | 2019-09-11 18:50 | XMS REPORT ---
Author Author Felipe TORREZ Organization [employer] Address Unknown Phone Unavailable Care Team Providers Care Back Facer Name Role Phone CHARLIE TORREZ CP Unavailable Allergies No Known Allergies Problems Problem Type Condition Code Onset Dates Condition Statu s Problem DTAP TEST V06.1 Active Problem Post-traumatic headache, unspecified 339.20 Active Problem Routine general medical examination at [facility] V70.0 Active Problem Pain in right hand M79.641 Active Problem Pain of left hand M79.642 Active Problem Dysthymia F34.1 Active Problem Unspecified hypothyroidism 244.9 A ctive Problem Memory loss 780.93 Active Problem Sciatica of left side M54.32 Active Problem Mood disorder in conditions classified elsewhere 293.8 3 Active Problem Depressive disorder, not elsewhere classified 311 Active Problem Sciatica 724.3 Active Problem Screening examination for pulmonary tuberculosis V74.1 Active Problem Sprain and strain of unspecified site of shoulder and upper arm 840.9 Active Problem Anxiety state, unspecified 300.00 A ctive Problem Health examination of defined subpopulation V70.5 Active Medications Medication Code System Code Instructions Start Date End Date Status Dosage Levothyroxine Sodium [facility] [id number] 25 MCG Orally Once a da y July 04, 2015 1 tablet Results No Known Results Summary Purpose [employer]Clinical[employer] Submission
--- OUTSIDE RECORDS SUMMARY | 2019-09-11 18:50 | XMS REPORT ---
Author Author Felipe TORREZ Organization [address] Address [address] [place] [address] Care Team Providers Care Irrigationist Designer Name Role Phone CHARLIE TORREZ Unavailable PROBLEMS Type Condition ICD9-CM Code [id number] Code Onset Dates Condition S tatus SNOMED Code Problem Screening examination for pulmonary tuberculosis V74.1 Active 624921543 Problem Routine general medical examination at [facility] V70.0 Active 436971233 Problem Health examination of defined subpopulation V70.5 Active 008629802 Problem Sprain and strain of unspecified site of shoulder and upper arm 840.9 Active 208471029 Problem DTAP TEST V06.1 Active Problem Post-traumatic headache, unspecified 339.20 Active 720011208 Problem Depressive disorder, not elsewhere classified 311 Active 49666363 Problem Anxiety state, unspecified 300.00 Act madeline 047485623 Problem Dysthymia F34.1 Active 14426402 Problem Sciatica 724.3 Active 68421993 Problem Pain in right hand M79.641 Active 5 7100240 Problem Memory loss 780.93 Active 62217305 Problem Mood disorder in conditions classified elsewhere 293.83 Active 84658784 Problem Unspecified hypothyroidism 244.9 Act madeline 03878910 Problem Pain of left hand M79.642 Active 53 383142 Problem Sciatica of left side M54.32 Active 52096344 ALLERGIES No Information ENCOUNTERS Encounter Location Date Diagnosis [facility] [address] [facility] [id number] [place] [id number] Feb, Non-intractable vomiting, presence of na usea not specified, unspecified vomiting type R11.10 ; Cough R05 and Post-nasal drainage R09.82 [facility] [address] [place] [id number] [place] [id number] Jan, Folliculitis abscedens et suffodiens L66 .3 [place] [id number] [place] [id number] Nov, Dysthymia F34.1 [facility] [address] [facility] [id number] [place] [id number] Oct, [facility] [address] [facility] [id number] [place] [id number] Oct, Dysthymia F34.1 [facility] [id number] [place] [id number] Sep, Dysthymia F34.1 ; Pain in right hand M79 .641 ; Pain of left hand M79.642 and Sciatica of left side M54.32 [place] [id number] [place] [id number] August, [facility] [id number] [place] [address], [place] [id number] Jun, Moderate episode of recurrent major depr essive disorder F33.1 and Hypothyroidism, unspecified type E03.9 [place] [id number] [place] [address], [place] [id number] Jun, Fatigue, unspecified type R53.83 [place] [address] [address] Jan, Rupture of extensor tendon o f finger M66.88 and Rupture of radial collateral ligament of right thumb S53.21XA [facility] [address] [address] Jan, Pain of right thumb M79.644 [place] [id number] [place] [address], [place] [id number] Jan, Pain of right thumb M79.644 and Dislocat ion of interphalangeal joint of right thumb S63.124A [place] [id number] [place] [address], [place] [id number] Sep, Sore throat (viral) 462 and URI (upper r espiratory infection) 465.9 [facility] [address] [address] Jul, [facility] [address] [id number] [address] [place] [phone] Jul, [facility] [address] [id number] [address] [place] [phone] Jan, [facility] [place] [address] [id number] [place] [id number] Jan, [facility] [place] [address] [id number] [place] [id number] Jan, [facility] [address] [id number] [address] [place] [address], [place] [address] Jan, [facility] [place] [address] [id number] [place] [id number] Nov, [facility] [place] [address] [id number] [place] [id number] Oct, [facility] [place] [address] [id number] [place] [id number] Sep, [facility] [place] [address] [id number] [place] [id number] Jun, [facility] [place] [address] [id number] [place] [id number] Jun, [facility] [place] [address] [id number] [place] [id number] Jun, [facility] [address] [id number] [address] [place] [phone] Jan, [facility] [address] [id number] [address] [place] [phone] Nov, [facility] [address] [id number] [address] [place] [phone] Oct, [facility] [address] [id number] [address] [place] [phone] Oct, [facility] [address] [facility] [id number] [address] [place] [phone] Oct, [facility] [address] [id number] [address] [place] [phone] 11 Oct, 2011 [facility] [address] [id number] [address] [place] [phone] 11 Oct, 2011 [facility] [address] [id number] [address] [place] [phone] 15 Sep, 2011 [facility] [address] [id number] [address] [place] [phone] 13 Sep, 2011 [facility] [address] [id number] [address] [place] [phone] 12 Sep, 2011 [facility] [address] [id number] [address] [place] [phone] Jun, [facility] [address] [facility] [id number] [address] [place] [phone] Nov, IMMUNIZATIONS No Known Immunizations SOCIAL HISTORY Never Assessed REASON FOR VISIT PLAN OF CARE VITAL SIGNS Height 72 in 2014-01-19 Weight 216 lbs 2014-01-19 Temperature 98.4 degrees Fahrenheit 2014-01-19 Heart Rate 76 bpm 2014-01-19 Respiratory Rate 16 2014-01-19 Blood pressure systolic 118 mmHg 2014-01-19 Blood pressure diastolic 74 mmHg 2014-01-19 MEDICATIONS No Known Medications RESULTS No Results PROCEDURES Procedure Date Ordered Result Body Site X-RAY EXAM OF WRIST Jan 19, 2014 X-RAY EXAM OF FOREARM Jan 19, 2014 INSTRUCTIONS MEDICATIONS ADMINISTERED No Known Medications MEDICAL (GENERAL) HISTORY Type Description Date Medical History depression Medical History Hypothyroidism Surgical History Benign tumor removed from right shoulder 2009
--- OUTSIDE RECORDS SUMMARY | 2019-09-11 18:50 | XMS REPORT ---
Author Author Felipe Suárez Doctor Organization [facility] Address Unknown Phone Unavailable Care Team Providers Care Riverboat Captain Name Role Phone Migration, Doctor Unavailable Unavailable PROBLEMS Type Condition ICD9-CM Code UMD86-IA Code Onset Dates Condition S tatus SNOMED Code Problem Screening examination for pulmonary tuberculosis V74.1 Active 321697954 Problem Routine general medical examination at health care [facility] y V70.0 Active 109293557 Problem Health examination of defined subpopulation V70.5 Active 469110434 Problem Sprain and strain of unspecified site of shoulder and upper arm 840.9 Active 800780719 Problem DTAP TEST V06.1 Active Problem Post-traumatic headache, unspecified 339.20 Active 580770634 Problem Depressive disorder, not elsewhere classified 311 Active 85072606 Problem Anxiety state, unspecified 300.00 Act madeline 241586622 Problem Dysthymia F34.1 Active 97338326 Problem Sciatica 724.3 Active 53253712 Problem Pain in right hand M79.641 Active 5 9909326 Problem Memory loss 780.93 Active 48125258 Problem Mood disorder in conditions classified elsewhere 293.83 Active 03287780 Problem Unspecified hypothyroidism 244.9 Act madeline 29385322 Problem Pain of left hand M79.642 Active 53 095095 Problem Sciatica of left side M54.32 Active 27302909 ALLERGIES No Information ENCOUNTERS Encounter Location Date Diagnosis [address] S [id number] Feb, Non-intractable vomiting, presence of na usea not specified, unspecified vomiting type R11.10 ; Cough R05 and Post-nasal drainage R09.[address] S [id number] Jan, Folliculitis abscedens et suffodiens L66 .3 [address], [place] [id number] Nov, Dysthymia F34.[address] [id number] [place] [id number] Oct, [facility] [address] [facility] [id number] [place] [id number] Oct, Dysthymia F34.1 [facility] [address] [facility] [id number] [place] [id number] Sep, Dysthymia F34.1 ; Pain in right hand M79 .641 ; Pain of left hand M79.642 and Sciatica of left side M54.32 [facility] [address] [facility] [id number] [place] [id number] August, [facility] [address] [facility] [id number] [place] [id number] Jun, Moderate episode of recurrent major depr essive disorder F33.1 and Hypothyroidism, unspecified type E03.9 [facility] [id number] [place] [address], [place] [id number] Jun, Fatigue, unspecified type R53.83 [place] [address] [address] Jan, Rupture of extensor tendon o f finger M66.88 and Rupture of radial collateral ligament of right thumb S53.21XA [place] [address] [address] Jan, Pain of right thumb M79.644 [place] [id number] [place] [address], [place] [id number] Jan, Pain of right thumb M79.644 and Dislocat ion of interphalangeal joint of right thumb S63.124A [facility] [id number] [place], [place] [address], [place] [id number] Sep, Sore throat (viral) 462 and URI (upper r espiratory infection) 465.9 [place] [address] [address] Jul, [place] [address] [address] Jul, [facility] [address] [id number] [address] [place] [address] Jan, [facility] [place] [address] [id number] [place] [id number] Jan, [facility] [place] [address] [id number] [place] [id number] Jan, [facility] [address] [id number] [address] [place] [phone] Jan, [facility] [place] [address] [id number] [place] [id number] Nov, [facility] [place] [address] [id number] [place] [id number] Oct, [facility] [place] [address] [id number] [place] [id number] Sep, [facility] [place] [address] [id number] [place] [id number] Jun, [facility] [place] [address] [id number] [place] [id number] Jun, [facility] [place] [address] [id number] [place] [id number] Jun, [facility] [address] [facility] [id number] [address] [place] [phone] Jan, [facility] [address] [facility] [id number] [address] [place] [phone] Nov, [facility] [address] [id number] [address] [place] [phone] Oct, [facility] [address] [facility] [id number] [address] [place] [phone] Oct, [facility] [address] [facility] [id number] [address] [place] [id number] Oct, [facility] [address] [facility] [id number] [address] [place] [phone] Oct, [facility] [address] [facility] [id number] [address] [place] [phone] 11 Oct, 2011 [facility] [address] [facility] [id number] [address] [place] [phone] 15 Sep, [facility] [address] [facility] [id number] [address] [place] [id number] 13 Sep, [facility] [address] [facility] [id number] [address] [place] [phone] 12 Sep, [facility] [address] [facility] [id number] [address] [place] [id number] 15 Jun, 2010 [facility] [address] [facility] [id number] [address] [place] [phone] Nov, IMMUNIZATIONS No Known Immunizations SOCIAL HISTORY Never Assessed REASON FOR VISIT PLAN OF CARE VITAL SIGNS MEDICATIONS No Known Medications RESULTS No Results PROCEDURES Procedure Date Ordered Result Body Site COMPLETE CBC W/AUTO DIFF WBC September 17, 2011 ASSAY THYROID STIM HORMONE September 17, 2011 GLYCATED HEMOGLOBIN TEST September 17, 2011 DRUG SCREEN, QUALITATE/MULTI September 17, 2011 LIPID PANEL September 17, 2011 COMPREHEN METABOLIC PANEL September 17, 2011 VENIPUNCT, ROUTINE* September 17, 2011 INSTRUCTIONS MEDICATIONS ADMINISTERED No Known Medications MEDICAL (GENERAL) HISTORY Type Description Date Medical History depression Medical History Hypothyroidism Surgical History Benign tumor removed from right shoulder 2009
--- OUTSIDE RECORDS SUMMARY | 2019-09-11 18:50 | XMS REPORT ---
Author Author Felipe Suárez Doctor Organization [facility] Address Unknown Phone Unavailable Care Team Providers Care Clubhouse Attendant Name Role Phone Migration, Doctor Unavailable Unavailable PROBLEMS Type Condition ICD9-CM Code [id number] Code Onset Dates Condition S tatus SNOMED Code Problem Screening examination for pulmonary tuberculosis V74.1 Active 785320089 Problem Routine general medical examination at health care [facility] y V70.0 Active 305173807 Problem Health examination of defined subpopulation V70.5 Active 188534644 Problem Sprain and strain of unspecified site of shoulder and upper arm 840.9 Active 611226989 Problem DTAP TEST V06.1 Active Problem Post-traumatic headache, unspecified 339.20 Active 938836078 Problem Depressive disorder, not elsewhere classified 311 Active 87776496 Problem Anxiety state, unspecified 300.00 Act madeline 918070117 Problem Dysthymia F34.1 Active 90162554 Problem Sciatica 724.3 Active 99925736 Problem Pain in right hand M79.641 Active 5 4053439 Problem Memory loss 780.93 Active 47587925 Problem Mood disorder in conditions classified elsewhere 293.83 Active 00021443 Problem Unspecified hypothyroidism 244.9 Act madeline 69467325 Problem Pain of left hand M79.642 Active 53 596472 Problem Sciatica of left side M54.32 Active 22903256 ALLERGIES No Information ENCOUNTERS Encounter Location Date Diagnosis [address]100[facility] S [id number] Feb, Non-intractable vomiting, presence of na usea not specified, unspecified vomiting type R11.10 ; Cough R05 and Post-nasal drainage R09.82 [address] S [id number] Jan, Folliculitis abscedens et suffodiens L66 .3 [address], S [id number] Nov, Dysthymia F34.[address] [id number] [place] [id number] Oct, [facility] [address] [facility] [id number] [place] [id number] Oct, Dysthymia F34.1 [facility] [address] [facility] [id number] [place] [id number] Sep, Dysthymia F34.1 ; Pain in right hand M79 .641 ; Pain of left hand M79.642 and Sciatica of left side M54.32 [facility] [address] [facility] [id number] [place] [id number] August, [facility] [address] [facility] [id number] [place] [id number] Jun, Moderate episode of recurrent major depr essive disorder F33.1 and Hypothyroidism, unspecified type E03.9 [facility] [address] [place] [id number] [place] [address], [place] [id number] Jun, Fatigue, unspecified type R53.83 [place] [address] [address] Jan, Rupture of extensor tendon o f finger M66.88 and Rupture of radial collateral ligament of right thumb S53.21XA [place] [address] [address] Jan, Pain of right thumb M79.644 [place] [id number] [place] [address], [place] [id number] Jan, Pain of right thumb M79.644 and Dislocat ion of interphalangeal joint of right thumb S63.124A [facility] [address] [id number] [place], [place] [address], [place] [id number] Sep, Sore throat (viral) 462 and URI (upper r espiratory infection) 465.9 [place] [address] [address] Jul, [place] [address] [address] Jul, [facility] [address] [id number] [address] [place] [address] Jan, [facility] [place] [address] [id number] [place] [id number] Jan, [facility] [place] [address] [id number] [place] [id number] Jan, [facility] [address] [id number] [address] [place] [address] Jan, [facility] [place] [address] [id number] [place] [id number] Nov, [facility] [place] [address] [id number] [place] [id number] Oct, [facility] [place] [address] [id number] [place] [id number] Sep, [facility] [place] [address] [id number] [place] [id number] Jun, [facility] [place] [address] [id number] [place] [id number] Jun, [facility] [place] [address] [id number] [place] [id number] Jun, [facility] [address] [facility] [id number] [address] [place] [address] Jan, [facility] [address] [facility] [id number] [address] [place] [phone] Nov, [facility] [address] [id number] [address] [place] [address] Oct, [facility] [address] [facility] [id number] [address] [place] [address] Oct, [facility] [address] [facility] [id number] [address] [place] [address] Oct, [facility] [address] [facility] [id number] [address] [place] [address] Oct, [facility] [address] [facility] [id number] [address] [place] [address] Oct, [facility] [address] [facility] [id number] [address] [place] [address] 15 Sep, 2011 [facility] [address] [facility] [id number] [address] [place] [phone] 13 Sep, 2011 [facility] [address] [facility] [id number] [address] [place] [address] Sep, [facility] [address] [facility] [id number] [address] [place] [address] Jun, [facility] [address] [facility] [id number] [address] [place] [address] Nov, IMMUNIZATIONS No Known Immunizations SOCIAL HISTORY Never Assessed REASON FOR VISIT [place] [place] VITAL SIGNS MEDICATIONS No Known Medications RESULTS No Results PROCEDURES No Known procedures INSTRUCTIONS MEDICATIONS ADMINISTERED No Known Medications MEDICAL (GENERAL) HISTORY Type Description Date Medical History depression Medical History Hypothyroidism Surgical History Benign tumor removed from right shoulder 2009
--- OUTSIDE RECORDS SUMMARY | 2019-09-11 18:50 | XMS REPORT ---
Author Author Felipe TORREZ Organization [employer] Address Unknown Phone Unavailable Care Team Providers Care Panelboard Assembler Name Role Phone CHARLIE TORREZ CP Unavailable Allergies, Adverse Reactions, Alerts Substance Reaction Event Type N.K.D.A. Info Not Available Non Drug Allergy Problems Problem Type Condition Code Onset Dates Condition Statu s Problem DTAP TEST V06.1 Active Problem Post-traumatic headache, unspecified 339.20 Active Problem Routine general medical examination at [place] V70.0 Active Problem Pain in right hand M79.641 Active Problem Pain of left hand M79.642 Active Problem Dysthymia F34.1 Active Problem Unspecified hypothyroidism 244.9 A ctive Problem Memory loss 780.93 Active Problem Sciatica of left side M54.32 Active Problem Mood disorder in conditions classified elsewhere 293.8 3 Active Assessment Dysthymia F34.1 Active Problem Depressive disorder, not elsewhere classified 311 Active Problem Sciatica 724.3 Active Problem Screening examination for pulmonary tuberculosis V74.1 Active Problem Sprain and strain of unspecified site of shoulder and upper arm 840.9 Active Problem Anxiety state, unspecified 300.00 A ctive Problem Health examination of defined subpopulation V70.5 Active Medications Medication Code System Code Instructions Start Date End Date Status Dosage Sertraline HCl [facility] [address]-27 100 MG Orally Once a day July 04, 2015 1 tablets Levothyroxine Sodium [facility] [address]-67 25 MCG Orally Once a da y July 04, 2015 1 tablet Procedures Procedure Coding System Code Date Office Visit, Est Pt., Level 3 CPT-4 05611 J [facility] 2015 Vital Signs Date/Time: October 11, 2015 Cardiac Monitoring Heart Rate 68 bpm Weight 216.4 lbs Height 72 in Blood Pressure Diastolic 70 mmHg Blood Pressure Systolic 110 mmHg Results No Known Results Summary Purpose [employer] Submission
--- OUTSIDE RECORDS SUMMARY | 2019-09-11 18:50 | XMS REPORT ---
Author Author Felipe TORREZ Organization [employer] Address Unknown Phone Unavailable Care Team Providers Care Siding Applicator Name Role Phone CHARLIE TORREZ CP Unavailable Allergies, Adverse Reactions, Alerts Substance Reaction Event Type N.K.D.A. Info Not Available Non Drug Allergy Problems Problem Type Condition Code Onset Dates Condition Statu s Problem DTAP TEST V06.1 Active Problem Post-traumatic headache, unspecified 339.20 Active Problem Routine general medical examination at [facility] V70.0 Active Problem Pain in [...] Instructions Start Date End Date Status Dosage Venlafaxine HCl [facility] [address]-13 37.5 MG Orally Twice a day Nov 15, 2015 1 tablet with food Levothyroxine Sodium [facility] [address]-42 25 MCG Orally Once a da y July 04, 2015 1 tablet Procedures Procedure Coding System Code Date Office Visit, Est Pt., Level 3 CPT-4 21872 A 2015 Vital Signs Date/Time: Nov 15, 2015 Cardiac Monitoring Heart Rate 57 bpm Weight 216 lbs Height 72 in BMI 29.29 Index Blood Pressure Diastolic 72 mmHg Blood Pressure Systolic 110 mmHg Results No Known Results Summary Purpose [employer] Submission
--- OUTSIDE RECORDS SUMMARY | 2019-09-11 18:50 | XMS REPORT ---
Author Author Felipe TORREZ Organization [employer] Address Unknown Phone Unavailable Care Team Providers Care Activity Coordinator Name Role Phone CHARLIE TORREZ CP Unavailable Allergies No Known Allergies Problems Problem Type Condition Code Onset Dates Condition Statu s Problem Depressive disorder, not elsewhere classified 311 Active Problem Sprain and strain of unspecified site of shoulder and upper arm 840.9 Active Problem Sciatica 724.3 Active Problem Screening examination for pulmonary tuberculosis V74.1 Active Problem Anxiety state, unspecified 300.00 A ctive Problem Unspecified hypothyroidism 244.9 A ctive Problem Memory loss 780.93 Active Problem Mood disorder in conditions classified elsewhere 293.8 3 Active Problem DTAP TEST V06.1 Active Problem Health examination of defined subpopulation V70.5 Active Problem Post-traumatic headache, unspecified 339.20 Active Problem Routine general medical examination at [facility] V70.0 Active Medications Medication Code System Code Instructions Start Date End Date Status Dosage Levothyroxine Sodium [facility] [address]-43 25 MCG Orally Once a da y July 04, 2015 1 tablet Sertraline HCl [facility] [address]-33 25 MG Orally Once a day July 03 016 2 tablets Results No Known Results Summary Purpose [employer]Clinical[employer] Submission
--- OUTSIDE RECORDS SUMMARY | 2019-09-11 18:50 | XMS REPORT ---
Author Author Felipe TORREZ Organization [address] Address [address] [place] [address] Care Team Providers Care Scroll Assembler Name Role Phone CHARLIE TORREZ Unavailable PROBLEMS Type Condition ICD9-CM Code VCI59-DV Code Onset Dates Condition S tatus SNOMED Code Problem Screening examination for pulmonary tuberculosis V74.1 Active 876215957 Problem Routine general medical examination at [facility] V70.0 Active 890237160 Problem Health examination of defined subpopulation V70.5 Active 416023600 Problem Sprain and strain of unspecified site of shoulder and upper arm 840.9 Active 402987925 Problem DTAP TEST V06.1 Active Problem Post-traumatic headache, unspecified 339.20 Active 455119238 Problem Depressive disorder, not elsewhere classified 311 Active 73495274 Problem Anxiety state, unspecified 300.00 Act madeline 592728850 Problem Dysthymia F34.1 Active 41356417 Problem Sciatica 724.3 Active 04452811 Problem Pain in right hand M79.641 Active 5 6984593 Problem Memory loss 780.93 Active 78042302 Problem Mood disorder in conditions classified elsewhere 293.83 Active 23597354 Problem Unspecified hypothyroidism 244.9 Act madeline 23964682 Problem Pain of left hand M79.642 Active 53 269182 Problem Sciatica of left side M54.32 Active 12345211 ALLERGIES No Information ENCOUNTERS Encounter Location Date Diagnosis [facility] [address] [facility] [id number] [place] [id number] Feb, Non-intractable vomiting, presence of na usea not specified, unspecified vomiting type R11.10 ; Cough R05 and Post-nasal drainage R09.82 [facility] [address] [place] [id number] [place] [id number] Jan, Folliculitis abscedens et suffodiens L66 .3 [place] [id number] [place] [id number] Nov, Dysthymia F34.1 [facility] [address] [facility] [id number] [place] [id number] Oct, [facility] [address] [facility] [id number] [place] [id number] Oct, Dysthymia F34.1 [facility] [id number] [place] [id number] Sep, Dysthymia F34.1 ; Pain in right hand M79 .641 ; Pain of left hand M79.642 and Sciatica of left side M54.32 [place] [id number] [place] [id number] August, [facility] [address] [place] [id number] [place] [address], [place] [id number] Jun, Moderate episode of recurrent major depr essive disorder F33.1 and Hypothyroidism, unspecified type E03.9 [place] [id number] [place] [address], [place] [id number] Jun, Fatigue, unspecified type R53.83 [place] [address] [address] Jan, Rupture of extensor tendon o f finger M66.88 and Rupture of radial collateral ligament of right thumb S53.21XA [facility] [address] [address] Jan, Pain of right thumb M79.644 [place] [id number] [place] [address], [place] [id number] Jan, Pain of right thumb M79.644 and Dislocat ion of interphalangeal joint of right thumb S63.124A [place] [id number] [place] [address], [place] [id number] Sep, Sore throat (viral) 462 and URI (upper r espiratory infection) 465.9 [facility] [address] [address] Jul, [facility] [address] [id number] [address] [place] [phone] Jul, [facility] [address] [id number] [address] [place] [phone] Jan, [facility] [place] [address] [id number] [place] [id number] Jan, [facility] [place] [address] [id number] [place] [id number] Jan, [facility] [address] [id number] [address] [place] [address], [place] [address] Jan, [facility] [place] [address] [id number] [place] [id number] Nov, [facility] [place] [address] [id number] [place] [id number] Oct, [facility] [place] [address] [id number] [place] [id number] Sep, [facility] [place] [address] [id number] [place] [id number] Jun, [facility] [place] [address] [id number] [place] [id number] Jun, [facility] [place] [address] [id number] [place] [id number] Jun, [facility] [address] [id number] [address] [place] [phone] Jan, [facility] [address] [id number] [address] [place] [phone] Nov, [facility] [address] [id number] [address] [place] [phone] Oct, [facility] [address] [id number] [address] [place] [phone] Oct, [facility] [address] [facility] [id number] [address] [place] [phone] Oct, [facility] [address] [id number] [address] [place] [phone] 11 Oct, 2011 [facility] [address] [id number] [address] [place] [phone] 11 Oct, 2011 [facility] [address] [id number] [address] [place] [phone] 15 Sep, 2011 [facility] [address] [facility] [id number] [address] [place] [phone] Sep, [facility] [address] [facility] [id number] [address] [place] [phone] Sep, [facility] [address] [facility] [id number] [address] [place] [phone] Jun, [facility] [address] [facility] [id number] [address] [place] [phone] Nov, IMMUNIZATIONS No Known Immunizations SOCIAL HISTORY Never Assessed REASON FOR VISIT PLAN OF CARE VITAL SIGNS Height 72 in 2014-01-30 Weight 215.5 lbs 2014-01-30 Temperature 97.5 degrees Fahrenheit 2014-01-30 Heart Rate 92 bpm 2014-01-30 Respiratory Rate 10 2014-01-30 Blood pressure systolic 124 mmHg 2014-01-30 Blood pressure diastolic 92 mmHg 2014-01-30 MEDICATIONS No Known Medications RESULTS No Results PROCEDURES No Known procedures INSTRUCTIONS MEDICATIONS ADMINISTERED No Known Medications MEDICAL (GENERAL) HISTORY Type Description Date Medical History depression Medical History Hypothyroidism Surgical History Benign tumor removed from right shoulder 2009
--- OUTSIDE RECORDS SUMMARY | 2019-09-11 18:50 | XMS REPORT ---
Author Author Felipe Suárez Doctor Organization [facility] Address Unknown Phone Unavailable Care Team Providers Care Vascular Radiologist Name Role Phone Migration, Doctor Unavailable Unavailable PROBLEMS Type Condition ICD9-CM Code IIH54-BN Code Onset Dates Condition S tatus SNOMED Code Problem Screening examination for pulmonary tuberculosis V74.1 Active 830924886 Problem Routine general medical examination at [facility] y V70.0 Active 646304062 Problem Health examination of defined subpopulation V70.5 Active 998049892 Problem Sprain and strain of unspecified site of shoulder and upper arm 840.9 Active 506457555 Problem DTAP TEST V06.1 Active Problem Post-traumatic headache, unspecified 339.20 Active 191671356 Problem Depressive disorder, not elsewhere classified 311 Active 26616852 Problem Anxiety state, unspecified 300.00 Act madeline 424796747 Problem Dysthymia F34.1 Active 99481567 Problem Sciatica 724.3 Active 90205105 Problem Pain in right hand M79.641 Active 5 3611199 Problem Memory loss 780.93 Active 33983445 Problem Mood disorder in conditions classified elsewhere 293.83 Active 27006697 Problem Unspecified hypothyroidism 244.9 Act madeline 89367280 Problem Pain of left hand M79.642 Active 53 421507 Problem Sciatica of left side M54.32 Active 55333501 ALLERGIES No Information ENCOUNTERS Encounter Location Date Diagnosis [address] S [id number] Feb, Non-intractable vomiting, presence of na usea not specified, unspecified vomiting type R11.10 ; Cough R05 and Post-nasal drainage R09.[id number] S [id number] Jan, Folliculitis abscedens et suffodiens L66 .3 [address], [place] [id number] Nov, Dysthymia F34.[address] [id number] [place] [id number] Oct, [facility] [address] [facility] [id number] [place] [id number] Oct, Dysthymia F34.1 [facility] [address] [facility] [id number] [place] [id number] Sep, Dysthymia F34.1 ; Pain in right hand M79 .641 ; Pain of left hand M79.642 and Sciatica of left side M54.32 [facility] [address] [facility] [id number] [place] [id number] August, [facility] [address] [facility] [id number] [place] [id number] Jun, Moderate episode of recurrent major depr essive disorder F33.1 and Hypothyroidism, unspecified type E03.9 [facility] [address] [id number] [place] [address], [place] [id number] Jun, Fatigue, unspecified type R53.83 [place] [address] [address] Jan, Rupture of extensor tendon o f finger M66.88 and Rupture of radial collateral ligament of right thumb S53.21XA [place] [address] [address] Jan, Pain of right thumb M79.644 [place] [id number] [place] [address], [place] [id number] Jan, Pain of right thumb M79.644 and Dislocat ion of interphalangeal joint of right thumb S63.124A [facility] [address] [place] [id number] [place], [place] [address], [place] [id number] Sep, Sore throat (viral) 462 and URI (upper r espiratory infection) 465.9 [place] [address] [address] Jul, [place] [address] [address] Jul, [facility] [address] [id number] [address] [place] [address] Jan, [facility] [place] [address] [id number] [place] [id number] Jan, [facility] [place] [address] [id number] [place] [id number] Jan, [facility] [address] [id number] [address] [place] [address] Jan, [facility] [place] [address] [id number] [place] [id number] Nov, [facility] [place] [address] [id number] [place] [id number] Oct, [facility] [place] [address] [id number] [place] [id number] Sep, [facility] [place] [address] [id number] [place] [id number] Jun, [facility] [place] [address] [id number] [place] [id number] Jun, [facility] [place] [address] [id number] [place] [id number] Jun, [facility] [address] [facility] [id number] [address] [place] [phone] Jan, [facility] [address] [facility] [id number] [address] [place] [phone] Nov, [facility] [address] [id number] [address] [place] [id number] Oct, [facility] [address] [facility] [id number] [address] [place] [phone] Oct, [facility] [address] [facility] [id number] [address] [place] [address] Oct, [facility] [address] [facility] [id number] [address] [place] [phone] Oct, [facility] [address] [facility] [id number] [address] [place] [phone] Oct, [facility] [address] [facility] [id number] [address] [place] [phone] 15 Sep, 2011 [facility] [address] [facility] [id number] [address] [place] [phone] Sep, [facility] [address] [facility] [id number] [address] [place] [phone] Sep, [facility] [address] [facility] [id number] [address] [place] [phone] Jun, [facility] [address] [facility] [id number] [address] [place] [phone] Nov, IMMUNIZATIONS No Known Immunizations SOCIAL HISTORY Never Assessed REASON FOR VISIT PLAN OF CARE VITAL SIGNS Height 71 in 2011-09-16 Temperature 98.4 degrees Fahrenheit 2011-09-16 Heart Rate 72 bpm 2011-09-16 Respiratory Rate 18 2011-09-16 Blood pressure systolic 120 mmHg 2011-09-16 Blood pressure diastolic 74 mmHg 2011-09-16 MEDICATIONS No Known Medications RESULTS No Results PROCEDURES No Known procedures INSTRUCTIONS MEDICATIONS ADMINISTERED No Known Medications MEDICAL (GENERAL) HISTORY Type Description Date Medical History depression Medical History Hypothyroidism Surgical History Benign tumor removed from right shoulder 2009
--- OUTSIDE RECORDS SUMMARY | 2019-09-11 18:50 | XMS REPORT ---
Author Author Felipe HICKS Y Organization [employer] Address Unknown Phone Unavailable Care Team Providers Care Staging Technician Name Role Phone NAVYA HICKS Unavailable Allergies, Adverse Reactions, Alerts Substance Reaction Event Type N.K.D.A. Info Not Available Non Drug Allergy Problems Problem Type Condition Code Onset Dates Condition Statu s Problem DTAP TEST V06.1 Active Problem Post-traumatic headache, unspecified 339.20 Active Problem Routine general medical examination at [facility] V70.0 Active Problem Pain in right hand M79.641 Active Problem Pain of left hand M79.642 Active Problem Dysthymia F34.1 Active Problem Unspecified hypothyroidism 244.9 A ctive Problem Memory loss 780.93 Active Problem Sciatica of left side M54.32 Active Problem Mood disorder in conditions classified elsewhere 293.8 3 Active Assessment Folliculitis abscedens et suffodiens L66.3 Active Problem Depressive disorder, not elsewhere classified 311 Active Problem Sciatica 724.3 Active Problem Screening examination for pulmonary tuberculosis V74.1 Active Problem Sprain and strain of unspecified site of shoulder and upper arm 840.9 Active Problem Anxiety state, unspecified 300.00 A ctive Problem Health examination of defined subpopulation V70.5 Active Medications Medication Code System Code Instructions Start Date End Date Status Dosage Bactrim DS [facility] [address]-91 800-160 MG Orally Twice a day Jan 24, 2016 Jan 31, 2016 1 tablet Procedures Procedure Coding System Code Date Office Visit, Est Pt., Level 3 CPT-[address] 2015 Vital Signs Date/Time: Jan 24, 2016 Cardiac Monitoring Heart Rate 64 bpm Weight 223.1 lbs Height 72 in BMI 30.25 Index Blood Pressure Diastolic 68 mmHg Blood Pressure Systolic 120 mmHg Results No Known Results Summary Purpose [employer]ClinicalWorks Submission
--- OUTSIDE RECORDS SUMMARY | 2019-09-11 18:51 | XMS REPORT ---
Author Author Felipe HICKS Y Organization [employer] Address Unknown Phone Unavailable Care Team Providers Care Acid Condenser Name Role Phone NAVYA HICKS CP Unavailable Allergies No Known Allergies Problems [...] Active Problem Routine general medical examination at [facility] V70.0 Active Assessment Pain of right thumb M79.644 Active Problem Screening examination for pulmonary tuberculosis V74.1 Active Problem Anxiety state, unspecified 300.00 A ctive Medications No Known Medications Procedures Procedure Coding System Code Date X-RAY EXAM OF FINGER(S) CPT-4 22790 Jan 30, 2015 Results No Known Results Summary Purpose [employer] Submission
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
[2019-09-11] MEDS ORDERED: TETANUS,DIPTH,PERTUSS P/F (BOOSTRIX) 0.5 ML VIAL IM ONE ×2 (19:00→19:02)
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
[2019-09-11] MEDS ORDERED: fentaNYL INJECTION 100 MCG/2 ML AMP ONE (19:05)
[2019-09-11] MEDS ORDERED: WATER (STERILE) FOR INJECTION 10 ML ONE (19:07)
[2019-09-11] MEDS ORDERED: ceFAZolin INJECTION 1,000 MG ONE (19:07)
[2019-09-11 19:11] LABS: HEMOGLOBIN 17.8 G/DL (13.3-17.7); MEAN PLATELET VOLUME 9.4 FL (7.4-10.4); RED CELL DISTRIBUTION WIDTH 13.1 % (10.0-14.5); WHITE BLOOD COUNT 13.7 10^3/uL (4.3-11.0)
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
[2019-09-11] MEDS ORDERED: fentaNYL INJECTION 100 MCG/2 ML AMP IVP ONE (19:15)
[2019-09-11] MEDS ORDERED: ceFAZolin INJECTION 1,000 MG in WATER (STERILE) FOR INJECTION 10 ML IV ONE (19:15)
[2019-09-11] MEDS ORDERED: LACTATED RINGERS 1,000 ML IV ONE (19:15)
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
--- NOTE | 2019-09-11 19:20 | NUR ---
Dr. Young arrived to CT at this time.
[2019-09-11] MEDS ORDERED: LORazepam INJ 2 MG/ML (ATIVAN) VIAL ONE (19:21)
[2019-09-11] MEDS ORDERED: LORazepam INJ 2 MG/ML (ATIVAN) VIAL IVP STA (19:22)
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
[2019-09-11] MEDS ORDERED: CATHETER FLUSH 10 ML SYR IV PRN (19:30)
[2019-09-11] MEDS ORDERED: IOHEXOL 350 MG/ML 100 ML (OMNIPAQUE 350) VIAL IV ONE (19:30)
[2019-09-11] MEDS ORDERED: NS 100 ML (IVPB) BAG IV ONE (19:30)
[2019-09-11] MEDS ORDERED: HOLD METFORMIN - RECEIVED CONTRAST 20 ML VIAL IV SCH (19:30)
[2019-09-11 19:36] LABS: ALANINE AMINOTRANSFERASE 56 U/L (0-55); ALKALINE PHOSPHATASE 55 U/L (40-136); BILIRUBIN,DIRECT 0.2 MG/DL (0.0-0.3); BILIRUBIN,INDIRECT 0.4 MG/DL; BILIRUBIN,TOTAL 0.6 MG/DL (0.1-1.0); BUN/CREATININE RATIO 11; CALCIUM 9.8 MG/DL (8.5-10.1); CARBON DIOXIDE 21 MMOL/L (21-32); CHLORIDE 107 MMOL/L (98-107); CREATININE SERUM 1.48 MG/DL (0.60-1.30); GFR ESTIMATED 56; GLUCOSE 141 MG/DL (70-105); POTASSIUM 3.5 MMOL/L (3.6-5.0); SODIUM 142 MMOL/L (135-145); TOTAL PROTEIN 8.4 GM/DL (6.4-8.2)
--- NOTE | 2019-09-11 19:43 | NUR ---
C collar removed by Dr. Beach at this time.
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
[2019-09-11 20:50] VITALS: BP 140/89
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
[2019-09-12] MEDS ORDERED: LACTATED RINGERS 1,000 ML IV ONE (06:35)
== END 2019-09-11 19:58 | disposition short-term general hospital (02) ==
LOC: EDUNIT# 18:38 → ER 18:39
DX: S20.312A Abrasion of left front wall of thorax, initial encounter (principal); S40.212A Abrasion of left shoulder, initial encounter; S40.811A Abrasion of right upper arm, initial encounter; S80.811A Abrasion, right lower leg, initial encounter; S80.812A Abrasion, left lower leg, initial encounter; T14.8XXA Other injury of unspecified body region, initial encounter; R40.2142 Coma scale, eyes open, spontaneous, at arrival to emergency department; R40.2252 Coma scale, best verbal response, oriented, at arrival to emergency department; R40.2362 Coma scale, best motor response, obeys commands, at arrival to emergency department; Z23 Encounter for immunization; V86.06XA Driver of dirt bike or motor/cross bike injured in traffic accident, initial encounter
CPT/HCPCS: 36415; 70450; 71045; 71260; 72125; 72170; 74177; 80048; 80076; 80320; 85027; 86850; 86900; 86901; 90715; 93041; 94760; 99291; 99292